=== PATIENT | male | born 1980 | race Caucasian/White ===

== ENCOUNTER → 2017-07-22 | Outpatient (CLI) | payer BC ==
[~2017-07-22] MED LIST: ACE500 PO; ACET-2043 PO; ADV100/50 INH; ADV250/50 INH; ALB17R INH; ALBU8.5H12 IH; AMO500 PO; ATEN-1 PO; AZIT500T47 PO; BACDS PO; BUPR300T55 PO; CYCL10TA29 PO; DEXM5TAB3 PO; DIA5 PO; DIAZ-308 PO; DUONEB INH; ESZO1TAB16 PO; EYEDROP; FLU20 PO; FLUO40CA76 PO; HYDR-2952 PO; HYDR-4308 PO; HYDR473S4 PO; LANS15CA54 PO; LOM PO; LOR5 PO; LOR5/325 PO; LORA10CA3 PO; MES400 PO; METHY10 GT; MON10 PO; MUPI22OI28 TP; OMEP40CA45 PO; ONDA4TAB9 PO; ONDA8TAB98 PO; OXYC-869 PO; PAN20 PO; PAN40 PO; PANT40TA65 PO; PER PO; PIRO-1 PO; PRE10 PO; PRE20 PO; PREOD OS; PRO25 PO; PROM-110 PO; SUCR1TAB85 PO; TRA50 PO; TRAV2.5D4 OD; VENL150C61 PO
--- NOTE | 2017-07-22 09:27 | RADIOLOGY IMAGING REPORT ---
FACILITY: [facility] - [place] PATIENT NAME: Nolan Walton : 1980 MR: [id number] V: [id number] EXAM DATE: ORDERING PHYSICIAN: PATTI VAUGHN TECHNOLOGIST: Location: [facility] - [place] Patient: Nolan Walton : 1980 Visit/Account:[id number] Date of Sevice: 07/22/2017 Abdominal ultrasound Indication: Abdominal pain Comparison: CT 03/25/2016 Findings: Liver is normal in size and contour but diffusely heterogeneous in echotexture and measures 16.7 cm i n length. There is normal hepatopedal portal venous flow. The spleen is normal in size, contour, and echotexture and measures 11.0 cm in length. Gallbladder is surgically absent. Common duct measures 4.1 mm in maximum diameter with no evidence of shadowing stone. The head and proximal body of the pancreas is unremarkable. The distal body and tail is obscured by o verlying bowel gas. Abdominal aorta and IVC are patent and unremarkable. The bilateral kidneys are normal in size, contour, and echotexture with the right kidney measuring 1 1.0 cm and the left kidney measuring 12.1 cm. IMPRESSION: 1. Heterogeneous appearing liver with mild hepatic steatosis, otherwise abdominal ultrasound is unrem arkable. Report Dictated By: Justice Shankar at 07/22/2017 9:20 AM Report E-Signed By: Justice Shankar at 07/22/2017 9:23 AM WSN:[id number]
== END ==
LOC: US 00:52
PROVIDERS: ATTEND Nurse Practitioner Family
DX: K76.0 Fatty (change of) liver, not elsewhere classified (principal)
CPT/HCPCS: 76700

== ENCOUNTER 2018-05-19 10:19 | Emergency (ER) | payer BC ==
[~2018-05-19 10:19] MED LIST changes: -HYDR-4308 PO; +HYDR-654 PO
[2018-05-19] MEDS ORDERED: NS(*) 0.9% 1000 ML BAG 1,000 ML IV ONE (10:30)
[2018-05-19] MEDS ORDERED: METO50TA19 PO (10:30)
[2018-05-19] MEDS ORDERED: ONDANSETRON 4 MG/2 ML VIAL IVP ONE (10:30)
[2018-05-19] MEDS ORDERED: fentaNYL CITR 100 MCG/2 ML AMP IVP ONE (10:30)
--- NOTE | 2018-05-19 10:34 | ER Report ---
History and Physical Time Seen By MD: 10:31 HPI/ROS CHIEF COMPLAINT: Abdominal pain HISTORY OF PRESENT ILLNESS: 38-year-old male significant past medical history of multiple conditions including's psychiatric disorders hypertension said his gal lbladder removed she's had his appendix removed comes in with 2 days of persistent vomiting and diarrhea subjective fever and chills abdominal pain primarily epigastric but all over his belly diffuse unable to tolerate by mouth in any way nursing history of small bowel obstruction as per date patient denies chest pain patient denies additional complaints at this time pain is persistent constant sharp and stabbing with episodes of dull and aching primarily upper epigastric area but also localized in the lower regions as well REVIEW OF SYSTEMS: Respiratory: No cough, no dyspnea. Cardiovascular: No chest pain, no palpitations. Gastrointestinal: Vomiting diarrhea abdominal pain Musculoskeletal: No back pain. Remainder of the 14 system rev: Yes Allergies: Coded Allergies: adhesive (Verified Adverse Reaction, Intermediate, ITCHING, 05/19/18) Uncoded Allergies: HAYFEVER (Allergy, Mild, SINUS PROBLEMS, 08/27/11) Home Meds Active Scripts Pantoprazole Sodium (PANTOPRAZOLE SODIUM) 40 Mg Tablet.dr, 40 MG PO QDAY, #30 TAB.SR Prov:ANGI SOUZA NP 06/22/15 Ondansetron 4 Mg Odt (ONDANSETRON 4 MG ODT) 4 Mg Tab.rapdis, 4 MG PO Q6H, #10 TAB One tablet every 6 hours as needed for nausea and vomiting. Prov:ANGI SOUZA NP 06/22/15 Reported Medications Metoprolol Succinate (METOPROLOL SUCCINATE) 50 Mg Tab.er.24h, 1 TAB PO QDAY, TAB 05/19/18 Venlafaxine Hcl (EFFEXOR XR) 150 Mg Cap.er.24h, 150 MG PO QDAY 03/25/16 Albuterol Sulfate (Albuterol Sulfate Hfa) 8.5 Gm Hfa.aer.ad, 8.5 GM IH Q4H PRN, 0 Refills 02/16/11 Fluoxetine Hcl (Prozac) 40 Mg Capsule, 40 MG PO QDAY, #20 0 Refills 02/16/11 Discontinued Reported Medications Atenolol (ATENOLOL) 50 Mg Tablet, 20 MG PO QDAY, TAB 03/25/16 Cyclobenzaprine Hcl (CYCLOBENZAPRINE HCL) 10 Mg Tablet, 10 MG PO TID PRN for tension pena and back problems, #9 TAB 06/22/15 Acetaminophen (ACETAMINOPHEN) 500 Mg Tablet, 500 MG PO Q4-6H PRN for PAIN, TAB 01/20/14 Loratadine (CLARITIN) 10 Mg Capsule, 10 MG PO, CAPSULE 01/20/14 Travoprost (Travatan 0.004% Eye Drop) 2.5 Ml Drops, 2.5 ML OD DAILY, 0 Refills 02/16/11 Discontinued Scripts Ondansetron (ONDANSETRON ODT) 8 Mg Tab.rapdis, 8 MG PO Q4-6H, #10 Prov:KIRILL CHANEY DO 03/25/16 Oxycodone Hcl/Acetaminophen (PERCOCET 7.5-325 MG TABLET) 1 Each Tablet, 1 EACH PO Q4-6H, #14 Prov:KIRILL CHANEY DO 03/25/16 Oxycodone/Acetaminophen (OXYCODONE/ACETAMINOPHEN 5MG/325 MG) 5 Mg/325 Mg Tab, 1- 2 TAB PO Q6H, #20 TAB Prov:ANGI SOUZA YARD PIPE GRADER 06/22/15 Reviewed Nurses Notes: Yes Old Medical Records Reviewed: Yes Hx Smoking: No Smoking Status: Never Smoker Hx Substance Use Disorder: No Hx Alcohol Use: No Constitutional Vital Sign - Last 24 Hours 05/19/18 05/19/18 10:25 10:51 Temp 97.4 Pulse 100 Resp 20 B/P (MAP) 150/78 Pulse Ox 93 O2 Delivery Room Air O2 Flow Rate 2.0 Physical Exam General Appearance: The patient is alert, has no immediate need for airway protection and no current signs of toxicity. Appears uncomfortable Eyes: Pupils equal and round no injection. Respiratory: Chest is non tender, lungs are clear to auscultation. Cardiac: regular rate and rhythm [ ] Gastrointestinal: Abdomen tenderness to even light palpation no rebound mild guarding no peritoneal signs noted primarily epigastrium summa no lower abdominal periumbilical region normal bowel sounds otherwise unremarkable Musculoskeletal: Neck: Neck is supple and non tender. Extremities have full range of motion and are non tender. Skin: No rashes or lesions. [ ] DIFFERENTIAL DIAGNOSIS: After history and physical exam differential diagnosis was considered for small bowel obstruction perforation pancreatitis esophagitis Medical Decision Making Data Points Result Diagram: 05/19/18 1039 05/19/18 1039 Laboratory Hematology Test 05/19/18 10:24 05/19/18 10:39 Urine Color Yellow Urine Clarity Clear Urine pH 5.0 pH (4.8-9.5) Urine Specific [place] 1.020 Urine Protein Negative mg/dL (NEGATIVE) Urine Glucose (UA) Negative mg/dL (NEGATIVE) Urine Ketones Negative mg/dL (NEGATIVE) Urine Blood Negative (NEGATIVE) Urine Nitrite Negative (NEGATIVE) Urine Bilirubin Negative (NEGATIVE) Urine Urobilinogen Negative mg/dL (0.2-1.9) Urine Leukocyte Esterase Negative (NEGATIVE) Urine RBC None /HPF (0-2/HPF) Urine WBC 1 /HPF (0-5/HPF) Urine Squamous Epithelial Cells None /LPF (</=FEW) Urine Bacteria Negative /HPF (NONE-FEW) Urine Hyaline Casts Few /LPF (NONE-FEW) Urine Mucus Few /HPF (NONE-FEW) Red Blood Count 5.96 M/uL (4.00-5.60) Mean Corpuscular Volume 86.6 fL (80.0-96.0) Mean Corpuscular Hemoglobin 29.0 pg (26.0-33.0) Mean Corpuscular Hemoglobin Concent 33.5 g/dL (32.0-36.0) Red Cell Distribution Width 13.7 % (11.5-14.5) Mean Platelet Volume 8.5 fL (7.2-11.1) Neutrophils (%) (Auto) 69.8 % (39.4-72.5) Lymphocytes (%) (Auto) 22.2 % (17.6-49.6) Monocytes (%) (Auto) 6.1 % (4.1-12.4) Eosinophils (%) (Auto) 1.6 % (0.4-6.7) Basophils (%) (Auto) 0.3 % (0.3-1.4) Nucleated RBC Relative Count (auto) 0.1 /100WBC Neutrophils # (Auto) 7.8 K/uL (2.0-7.4) Lymphocytes # (Auto) 2.5 K/uL (1.3-3.6) Monocytes # (Auto) 0.7 K/uL (0.3-1.0) Eosinophils # (Auto) 0.2 K/uL (0.0-0.5) Basophils # (Auto) 0.0 K/uL (0.0-0.1) Nucleated RBC Absolute Count (auto) 0.01 K/uL Prothrombin Time 13.6 seconds (12.0-14.4) Prothromb Time International Ratio 1.04 Activated Partial Thromboplast Time 30 seconds (23-35) Sodium Level 141 mmol/L (137-145) Potassium Level 4.4 mmol/L (3.5-5.0) Chloride Level 105 mmol/L (98-107) Carbon Dioxide Level 23 mmol/L (22-30) Blood Urea Nitrogen 12 mg/dl (9-21) Creatinine 1.10 mg/dl (0.66-1.25) Glomerular Filtration Rate Calc > 60.0 Random Glucose 108 mg/dl (75-110) Calcium Level 9.0 mg/dl (8.4-10.2) Total Bilirubin 2.3 mg/dl (0.2-1.3) Aspartate Amino Transf (AST/SGOT) 66 U/L (0-35) Alanine Aminotransferase (ALT/SGPT) 115 U/L (0-56) Alkaline Phosphatase 111 U/L (0-126) Total Protein 8.2 g/dl (6.3-8.2) Albumin 4.7 g/dl (3.5-5.0) Lipase 244 U/L (23-300) Serum Alcohol < 10 mg/dl Chemistry Test 05/19/18 10:24 05/19/18 10:39 Urine Color Yellow Urine Clarity Clear Urine pH 5.0 pH (4.8-9.5) Urine Specific [place] 1.020 Urine Protein Negative mg/dL (NEGATIVE) Urine Glucose (UA) Negative mg/dL (NEGATIVE) Urine Ketones Negative mg/dL (NEGATIVE) Urine Blood Negative (NEGATIVE) Urine Nitrite Negative (NEGATIVE) Urine Bilirubin Negative (NEGATIVE) Urine Urobilinogen Negative mg/dL (0.2-1.9) Urine Leukocyte Esterase Negative (NEGATIVE) Urine RBC None /HPF (0-2/HPF) Urine WBC 1 /HPF (0-5/HPF) Urine Squamous Epithelial Cells None /LPF (</=FEW) Urine Bacteria Negative /HPF (NONE-FEW) Urine Hyaline Casts Few /LPF (NONE-FEW) Urine Mucus Few /HPF (NONE-FEW) White Blood Count 11.2 k/uL (4.5-11.0) Red Blood Count 5.96 M/uL (4.00-5.60) Hemoglobin 17.3 g/dL (14.0-18.0) Hematocrit 51.6 % (42.0-52.0) Mean Corpuscular Volume 86.6 fL (80.0-96.0) Mean Corpuscular Hemoglobin 29.0 pg (26.0-33.0) Mean Corpuscular Hemoglobin Concent 33.5 g/dL (32.0-36.0) Red Cell Distribution Width 13.7 % (11.5-14.5) Platelet Count 295 K/uL (150-450) Mean Platelet Volume 8.5 fL (7.2-11.1) Neutrophils (%) (Auto) 69.8 % (39.4-72.5) Lymphocytes (%) (Auto) 22.2 % (17.6-49.6) Monocytes (%) (Auto) 6.1 % (4.1-12.4) Eosinophils (%) (Auto) 1.6 % (0.4-6.7) Basophils (%) (Auto) 0.3 % (0.3-1.4) Nucleated RBC Relative Count (auto) 0.1 /100WBC Neutrophils # (Auto) 7.8 K/uL (2.0-7.4) Lymphocytes # (Auto) 2.5 K/uL (1.3-3.6) Monocytes # (Auto) 0.7 K/uL (0.3-1.0) Eosinophils # (Auto) 0.2 K/uL (0.0-0.5) Basophils # (Auto) 0.0 K/uL (0.0-0.1) Nucleated RBC Absolute Count (auto) 0.01 K/uL Prothrombin Time 13.6 seconds (12.0-14.4) Prothromb Time International Ratio 1.04 Activated Partial Thromboplast Time 30 seconds (23-35) Glomerular Filtration Rate Calc > 60.0 Calcium Level 9.0 mg/dl (8.4-10.2) Total Bilirubin 2.3 mg/dl (0.2-1.3) Aspartate Amino Transf (AST/SGOT) 66 U/L (0-35) Alanine Aminotransferase (ALT/SGPT) 115 U/L (0-56) Alkaline Phosphatase 111 U/L (0-126) Total Protein 8.2 g/dl (6.3-8.2) Albumin 4.7 g/dl (3.5-5.0) Lipase 244 U/L (23-300) Serum Alcohol < 10 mg/dl Coagulation Test 05/19/18 10:39 Prothrombin Time 13.6 seconds Prothromb Time International Ratio 1.04 Activated Partial Thromboplast Time 30 seconds Toxicology Test 05/19/18 10:39 Serum Alcohol < 10 mg/dl Urinalysis Test 05/19/18 10:24 Urine Color Yellow Urine Clarity Clear Urine pH 5.0 pH (4.8-9.5) Urine Specific [place] 1.020 Urine Protein Negative mg/dL (NEGATIVE) Urine Glucose (UA) Negative mg/dL (NEGATIVE) Urine Ketones Negative mg/dL (NEGATIVE) Urine Blood Negative (NEGATIVE) Urine Nitrite Negative (NEGATIVE) Urine Bilirubin Negative (NEGATIVE) Urine Urobilinogen Negative mg/dL (0.2-1.9) Urine Leukocyte Esterase Negative (NEGATIVE) Urine RBC None /HPF (0-2/HPF) Urine WBC 1 /HPF (0-5/HPF) Urine Squamous Epithelial Cells None /LPF (</=FEW) Urine Bacteria Negative /HPF (NONE-FEW) Urine Hyaline Casts Few /LPF (NONE-FEW) Urine Mucus Few /HPF (NONE-FEW) ED Course/Re-evaluation ED Course 38-year-old male history of Q [place] comes in with persistent vomiting and diarrhea CT scan show nothing acute slight bump in his LFTs and bilirubin bedside consult by general surgery after scan comfortable discharging home with some antibiotics patient Fluid resuscitation while he was here most high probability of this being a viral etiology Decision to Disposition Date: May 19, 2018 Decision to Disposition Time: 12:33 Depart Departure Latest Vital Signs Vital Signs Date Time Temp Pulse Resp B/P (MAP) Pulse Ox O2 Delivery O2 Flow Rate FiO2 05/19/18 10:51 2.0 05/19/18 10:25 97.4 100 20 150/78 93 Room Air Impression: Primary Impression: Viral gastroenteritis Condition: Improved Disposition: HOME OR SELF-CARE Referrals: MEGAN HOWELL (PCP) JOSE ERICKSON 5 Days New Scripts Promethazine Hcl (PROMETHAZINE HCL) 25 Mg Tablet 25 MG PO Q8H for 7 Days, #14 TAB Prov: CELESTINO CARDENAS MD 05/19/18 Patient Instructions: Gastroenteritis (DC) CELESTINO CARDENAS MD May 19, 2018 10:34
[2018-05-19 10:52] LABS: PLATELET COUNT, AUTOMATED 295 K/uL (150-450)
[2018-05-19 10:58] LABS: INR 1.04
[2018-05-19] MEDS ORDERED: IOPAMIDOL 76% 100 ML INFUS BTL 100 ML ONE (10:58)
--- NOTE | 2018-05-19 11:26 | RADIOLOGY IMAGING REPORT ---
FACILITY: [facility] - [place] PATIENT NAME: Nolan Walton : 1980 MR: [id number] V: [id number] EXAM DATE: ORDERING PHYSICIAN: CELESTINO CARDENAS TECHNOLOGIST: [place] [facility] [place] : 1980 Visit/Account:[id number] Date of Sevice: 05/19/2018 Exam type: CHEST PA LAT History: Nausea vomiting diarrhea and asthma Comparison: June 23, 2015. Findings: Is a small amount linear scarring in the lung bases similar to the prior study.. There is no evidenc e of acute appearing infiltrates, pleural effusions, pneumothorax or pneumomediastinum. Incidentally noted is an accessory azygous lobe. The cardiac silhouette is normal in size. Visualized bones are unremarkable for age IMPRESSION: 1. There is linear scarring in the lung bases that appears some are to the prior study although no e vidence of acute pulmonary consolidation Report Dictated By: Lori Rashid MD at 05/19/2018 11:19 AM Report E-Signed By: Lori Rashid MD at 05/19/2018 11:21 AM WSN:[email or web address]
[2018-05-19 12:00] VITALS: BP 104/68
--- NOTE | 2018-05-19 12:04 | RADIOLOGY IMAGING REPORT ---
FACILITY: [facility] - [place] PATIENT NAME: oNlan Walton : 1980 MR: [id number] V: [id number] EXAM DATE: ORDERING PHYSICIAN: CELESTINO CARDENAS TECHNOLOGIST: Location: [facility] Patient: Nolan Walton : 1980 Visit/Account:[id number] Date of Sevice: 05/19/2018 CT ABDOMEN PELVIS W/ CON HISTORY: Abdominal pain. Constipation and vomiting. TECHNIQUE: CT abdomen and pelvis with intravenous contrast. One of the following dose optimization techniques was utilized in the performance of this exam: Autom ated exposure control; adjustment of the mA and/or kV according to the patient's size; or use of an i terative reconstruction technique. Specific details can be referenced in the facility's radiology C T exam operational policy. CONTRAST: 75 mL Isovue-370. COMPARISON: March 25, 2016. FINDINGS: Visualized lung bases: Negative. Hepatobiliary: Suggestion of hepatic steatosis. Gallbladder surgically absent. Otherwise negative. Spleen: Negative. Adrenals: Negative. Pancreas: Negative. Kidneys/: Negative. No urolithiasis or hydronephrosis. GI: Incidental note of a small duodenal diverticulum. Otherwise negative. Appendix is not identified and may be absent. No wall thickening. No significant stool burden. No evidence for bowel obstructio n. Vessels/spaces/nodes: Negative. Bones/soft tissues: Negative. IMPRESSION: 1. No acute findings. 2. Incidental/chronic findings, as above. Report Dictated By: Josue Michael MD at 05/19/2018 11:57 AM Report E-Signed By: Joseu Michael MD at 05/19/2018 12:00 PM WSN:[id number]
[2018-05-19] MEDS ORDERED: PROM-110 PO (12:35)
--- NOTE | 2018-05-19 13:48 | General Surgery Consultation ---
History of Present Illness Reason for Consult abd pain, elevated lfts Chief Complaint abd pain, vomiting, diarrhea History of Present Illness 38 yo m with upper abd pain, vomiting and diarrhea for about 24 hrs. no blood in stool. no sick contacts. recently had the flu. h/o gilberts. h/o lap aditi, appendectomy. egd and colonoscopy 3 yrs ago were normal. c/o reflux. takes protonix daily. has hiatal hernia. no fever. History Home Meds Active Scripts Promethazine Hcl (PROMETHAZINE HCL) 25 Mg Tablet, 25 MG PO Q8H for 7 Days, #14 TAB Prov:CELESTINO CARDENAS MD 05/19/18 Pantoprazole Sodium (PANTOPRAZOLE SODIUM) 40 Mg Tablet.dr, 40 MG PO QDAY, #30 TAB.SR Prov:ANGI SOUZA NP 06/22/15 Ondansetron 4 Mg Odt (ONDANSETRON 4 MG ODT) 4 Mg Tab.rapdis, 4 MG PO Q6H, #10 TAB One tablet every 6 hours as needed for nausea and vomiting. Prov:ANGI SOUZA NP 06/22/15 Reported Medications Metoprolol Succinate (METOPROLOL SUCCINATE) 50 Mg Tab.er.24h, 1 TAB PO QDAY, TAB 05/19/18 Venlafaxine Hcl (EFFEXOR XR) 150 Mg Cap.er.24h, 150 MG PO QDAY 03/25/16 Albuterol Sulfate (Albuterol Sulfate Hfa) 8.5 Gm Hfa.aer.ad, 8.5 GM IH Q4H PRN, 0 Refills 02/16/11 Fluoxetine Hcl (Prozac) 40 Mg Capsule, 40 MG PO QDAY, #20 0 Refills 02/16/11 Discontinued Reported Medications Atenolol (ATENOLOL) 50 Mg Tablet, 20 MG PO QDAY, TAB 03/25/16 Cyclobenzaprine Hcl (CYCLOBENZAPRINE HCL) 10 Mg Tablet, 10 MG PO TID PRN for tension pena and back problems, #9 TAB 06/22/15 Acetaminophen (ACETAMINOPHEN) 500 Mg Tablet, 500 MG PO Q4-6H PRN for PAIN, TAB 01/20/14 Loratadine (CLARITIN) 10 Mg Capsule, 10 MG PO, CAPSULE 01/20/14 Travoprost (Travatan 0.004% Eye Drop) 2.5 Ml Drops, 2.5 ML OD DAILY, 0 Refills 02/16/11 Discontinued Scripts Ondansetron (ONDANSETRON ODT) 8 Mg Tab.rapdis, 8 MG PO Q4-6H, #10 Prov:KIRILL CHANEY DO 03/25/16 Oxycodone Hcl/Acetaminophen (PERCOCET 7.5-325 MG TABLET) 1 Each Tablet, 1 EACH PO Q4-6H, #14 Prov:KIRILL CHANEY DO 03/25/16 Oxycodone/Acetaminophen (OXYCODONE/ACETAMINOPHEN 5MG/325 MG) 5 Mg/325 Mg Tab, 1- 2 TAB PO Q6H, #20 TAB Prov:ANGI SOUZA FERRIS WHEEL OPERATOR 06/22/15 Allergies: Coded Allergies: adhesive (Verified Adverse Reaction, Intermediate, ITCHING, 05/19/18) Uncoded Allergies: HAYFEVER (Allergy, Mild, SINUS PROBLEMS, 08/27/11) Family History: FH: asthma siblings x3 FH: sleep apnea siblings x3 GERD FATHER Gallbladder disease FATHER siblings x3 Review of Systems Constitutional: Other (per hpi) Exam Vital Signs Vital Signs Date Time Temp Pulse Resp B/P (MAP) Pulse Ox O2 Delivery O2 Flow Rate FiO2 05/19/18 12:00 76 104/68 (80) 93 05/19/18 10:51 2.0 05/19/18 10:25 97.4 20 Room Air General Appearance: Alert, Awake, No Acute Distress Neuro: No Gross deficits Eyes: Other (per, eomi) ENT: Moist Mucous Membranes Cardiovascular: Other (reg rate) Respiratory: No Respiratory Distress GI: Other (abd soft, upper abd ttp) Integumentary: Skin Intact without Lesion / Mass Psych: Alert & Oriented X3, Appropriate Mood & Affect Medical Decision Making Data Points Result Diagram: 05/19/18 1039 05/19/18 1039 Assessment and Plan Problems: (1) Nausea and vomiting in adult Status: Acute Assessment & Plan: upper abd pain, n/v, diarrhea. ct unremarkable. elevated lfts likely from gilberts. pt states he feels comfortable going home. i advised him to call or go to er for increased pain, decreased uop, or inability to brenda po. plan: d/c home, antinausea meds, f/u me next week and prn. Venous Thromboembolism Antithrombotics Is Pt On Any Antithrombotics?: No JOSE ERICKSON May 19, 2018 13:48
== END 2018-05-19 12:47 | disposition home or self-care (01) ==
LOC: ER 10:36
DX: A08.4 Viral intestinal infection, unspecified (principal); R10.13 Epigastric pain
CPT/HCPCS: 71046; 74177; 80320; 81001; 83690; 85025; 85610; 85730; 96361; 96374; 96375; 99284; J2405; J3010; J7030; Q9967; 82040; 82247; 82310; 82374; 82435; 82565; 82947; 84075; 84132; 84155; 84295; 84450; 84460; 84520

== ENCOUNTER 2018-07-08 09:15 | Emergency (ER) | payer BC ==
[~2018-07-08 09:15] MED LIST changes: +METO50TA19 PO
--- NOTE | 2018-07-08 09:19 | ER Report ---
History and Physical Time Seen By MD: 09:19 HPI/ROS CHIEF COMPLAINT: Nausea vomiting abdominal pain diarrhea HISTORY OF PRESENT ILLNESS: Patient is a 38-year-old male who reports that he's been having recurring abdominal pain ever since having his gallbladder removed approximately 4 years ago. Last visit was in April of this year. Patient states that he usually develops pain that lasts for about 3-4 days and then resolves on its own. He is had multiple workups which have not found a cause of his abdominal pain. Pain started yesterday and became more severe. His last meal was last evening which was spaghetti along with and some crackers. Patient states he has no fevers. The pain is diffuse and across the abdomen and states that it goes from the rib cage down to the pelvic area. He also reports watery diarrhea and intractable vomiting. Denies any chest pain or shortness of breath. There is no recent antibiotic use. No recent travel history. REVIEW OF SYSTEMS: Constitutional: No fever, no chills. Eyes: No discharge. ENT: No sore throat. Cardiovascular: No chest pain, no palpitations. Respiratory: No cough, no shortness of breath. Gastrointestinal: Abdominal pain, nausea vomiting and diarrhea. Genitourinary: No hematuria. Musculoskeletal: No back pain. Skin: No rashes. Neurological: No headache. Allergies: Coded Allergies: adhesive (Verified Adverse Reaction, Intermediate, ITCHING, 07/08/18) Uncoded Allergies: HAYFEVER (Allergy, Mild, SINUS PROBLEMS, 08/27/11) Home Meds Active Scripts Promethazine Hcl (PROMETHAZINE HCL) 25 Mg Tablet, 25 MG PO Q8H for 7 Days, #14 TAB Prov:CELESTINO CARDENAS MD 05/19/18 Pantoprazole Sodium (PANTOPRAZOLE SODIUM) 40 Mg Tablet.dr, 40 MG PO QDAY, #30 TAB.SR Prov:ANGI SOUZA NP 06/22/15 Ondansetron 4 Mg Odt (ONDANSETRON 4 MG ODT) 4 Mg Tab.rapdis, 4 MG PO Q6H, #10 TAB One tablet every 6 hours as needed for nausea and vomiting. Prov:ANGI SOUZA NP 06/22/15 Reported Medications Atorvastatin Calcium (LIPITOR) 40 Mg Tablet, 1 TAB PO QDAY, TAB 07/08/18 Latanoprost (TRAVATAN Z) 2.5 Ml Soln, 2.5 ML OD 07/08/18 Metoprolol Succinate (METOPROLOL SUCCINATE) 50 Mg Tab.er.24h, 1 TAB PO QDAY, TAB 05/19/18 Venlafaxine Hcl (EFFEXOR XR) 150 Mg Cap.er.24h, 175 MG PO QDAY 03/25/16 Albuterol Sulfate (Albuterol Sulfate Hfa) 8.5 Gm Hfa.aer.ad, 8.5 GM IH Q4H PRN, 0 Refills 02/16/11 Fluoxetine Hcl (Prozac) 40 Mg Capsule, 40 MG PO QDAY, #20 0 Refills 02/16/11 Past Medical/Surgical History Past medical history for laparoscopic cholecystectomy, appendectomy, history of the shoulders syndrome, history of gastroesophageal reflux and hiatal hernia. Hx Smoking: No Smoking Status: Never Smoker Hx Substance Use Disorder: No Hx Alcohol Use: No Constitutional Vital Sign - Last 24 Hours 07/08/18 07/08/18 09:18 09:48 Temp 98.4 Pulse 110 Resp 14 B/P (MAP) 122/88 Pulse Ox 95 O2 Delivery Room Air O2 Flow Rate 1.0 Physical Exam General Appearance: The patient is alert, has no immediate need for airway protection and no signs of toxicity. Eyes: Pupils equal and round no pallor or injection. ENT, Mouth: Mucous membranes are moist. Respiratory: There are no retractions, lungs are clear to auscultation. Cardiovascular: Regular rate and rhythm. Gastrointestinal: Somewhat protuberant abdomen diffusely tender without peritoneal signs. Decreased bowel sounds. Neurological: Awake alert Skin: Warm and dry, no rashes. Musculoskeletal: Neck is supple non tender. Extremities are nontender, nonswollen and have full range of motion. Medical Decision Making Data Points Result Diagram: 07/08/1837 07/08/18 0937 Laboratory Hematology Test 07/08/18 09:18 07/08/18 09:37 Urine Color Yellow Urine Clarity Clear Urine pH 5.0 pH (4.8-9.5) Urine Specific Magnet 1.018 Urine Protein Negative mg/dL (NEGATIVE) Urine Glucose (UA) Negative mg/dL (NEGATIVE) Urine Ketones Negative mg/dL (NEGATIVE) Urine Blood Negative (NEGATIVE) Urine Nitrite Negative (NEGATIVE) Urine Bilirubin Negative (NEGATIVE) Urine Urobilinogen Negative mg/dL (0.2-1.9) Urine Leukocyte Esterase Negative (NEGATIVE) Urine RBC <1 /HPF (0-2/HPF) Urine WBC 1 /HPF (0-5/HPF) Urine Squamous Epithelial Cells None /LPF (</=FEW) Urine Bacteria Negative /HPF (NONE-FEW) Urine Mucus Few /HPF (NONE-FEW) Red Blood Count 6.20 M/uL (4.00-5.60) Mean Corpuscular Volume 87.4 fL (80.0-96.0) Mean Corpuscular Hemoglobin 29.7 pg (26.0-33.0) Mean Corpuscular Hemoglobin Concent 34.0 g/dL (32.0-36.0) Red Cell Distribution Width 14.2 % (11.5-14.5) Mean Platelet Volume 8.8 fL (7.2-11.1) Neutrophils (%) (Auto) 71.9 % (39.4-72.5) Lymphocytes (%) (Auto) 19.0 % (17.6-49.6) Monocytes (%) (Auto) 5.3 % (4.1-12.4) Eosinophils (%) (Auto) 3.4 % (0.4-6.7) Basophils (%) (Auto) 0.4 % (0.3-1.4) Nucleated RBC Relative Count (auto) 0.0 /100WBC Neutrophils # (Auto) 8.4 K/uL (2.0-7.4) Lymphocytes # (Auto) 2.2 K/uL (1.3-3.6) Monocytes # (Auto) 0.6 K/uL (0.3-1.0) Eosinophils # (Auto) 0.4 K/uL (0.0-0.5) Basophils # (Auto) 0.0 K/uL (0.0-0.1) Nucleated RBC Absolute Count (auto) 0.00 K/uL Peripheral Blood Smear No Y/N Sodium Level 141 mmol/L (137-145) Potassium Level 4.0 mmol/L (3.5-5.0) Chloride Level 105 mmol/L (98-107) Carbon Dioxide Level 24 mmol/L (22-30) Blood Urea Nitrogen 10 mg/dl (9-21) Creatinine 1.10 mg/dl (0.66-1.25) Glomerular Filtration Rate Calc > 60.0 Random Glucose 118 mg/dl (75-110) Calcium Level 9.4 mg/dl (8.4-10.2) Total Bilirubin 1.5 mg/dl (0.2-1.3) Aspartate Amino Transf (AST/SGOT) 29 U/L (0-35) Alanine Aminotransferase (ALT/SGPT) 47 U/L (0-56) Alkaline Phosphatase < 20 U/L (0-126) Total Protein 8.4 g/dl (6.3-8.2) Albumin 4.7 g/dl (3.5-5.0) Lipase 185 U/L (23-300) Helicobacter pylori IgG Antibody Negative (NEGATIVE) Chemistry Test 07/08/18 09:18 07/08/18 09:37 Urine Color Yellow Urine Clarity Clear Urine pH 5.0 pH (4.8-9.5) Urine Specific Magnet 1.018 Urine Protein Negative mg/dL (NEGATIVE) Urine Glucose (UA) Negative mg/dL (NEGATIVE) Urine Ketones Negative mg/dL (NEGATIVE) Urine Blood Negative (NEGATIVE) Urine Nitrite Negative (NEGATIVE) Urine Bilirubin Negative (NEGATIVE) Urine Urobilinogen Negative mg/dL (0.2-1.9) Urine Leukocyte Esterase Negative (NEGATIVE) Urine RBC <1 /HPF (0-2/HPF) Urine WBC 1 /HPF (0-5/HPF) Urine Squamous Epithelial Cells None /LPF (</=FEW) Urine Bacteria Negative /HPF (NONE-FEW) Urine Mucus Few /HPF (NONE-FEW) White Blood Count 11.6 k/uL (4.5-11.0) Red Blood Count 6.20 M/uL (4.00-5.60) Hemoglobin 18.4 g/dL (14.0-18.0) Hematocrit 54.2 % (42.0-52.0) Mean Corpuscular Volume 87.4 fL (80.0-96.0) Mean Corpuscular Hemoglobin 29.7 pg (26.0-33.0) Mean Corpuscular Hemoglobin Concent 34.0 g/dL (32.0-36.0) Red Cell Distribution Width 14.2 % (11.5-14.5) Platelet Count 305 K/uL (150-450) Mean Platelet Volume 8.8 fL (7.2-11.1) Neutrophils (%) (Auto) 71.9 % (39.4-72.5) Lymphocytes (%) (Auto) 19.0 % (17.6-49.6) Monocytes (%) (Auto) 5.3 % (4.1-12.4) Eosinophils (%) (Auto) 3.4 % (0.4-6.7) Basophils (%) (Auto) 0.4 % (0.3-1.4) Nucleated RBC Relative Count (auto) 0.0 /100WBC Neutrophils # (Auto) 8.4 K/uL (2.0-7.4) Lymphocytes # (Auto) 2.2 K/uL (1.3-3.6) Monocytes # (Auto) 0.6 K/uL (0.3-1.0) Eosinophils # (Auto) 0.4 K/uL (0.0-0.5) Basophils # (Auto) 0.0 K/uL (0.0-0.1) Nucleated RBC Absolute Count (auto) 0.00 K/uL Peripheral Blood Smear No Y/N Glomerular Filtration Rate Calc > 60.0 Calcium Level 9.4 mg/dl (8.4-10.2) Total Bilirubin 1.5 mg/dl (0.2-1.3) Aspartate Amino Transf (AST/SGOT) 29 U/L (0-35) Alanine Aminotransferase (ALT/SGPT) 47 U/L (0-56) Alkaline Phosphatase < 20 U/L (0-126) Total Protein 8.4 g/dl (6.3-8.2) Albumin 4.7 g/dl (3.5-5.0) Lipase 185 U/L (23-300) Helicobacter pylori IgG Antibody Negative (NEGATIVE) Urinalysis Test 07/08/18 09:18 Urine Color Yellow Urine Clarity Clear Urine pH 5.0 pH (4.8-9.5) Urine Specific Magnet 1.018 Urine Protein Negative mg/dL (NEGATIVE) Urine Glucose (UA) Negative mg/dL (NEGATIVE) Urine Ketones Negative mg/dL (NEGATIVE) Urine Blood Negative (NEGATIVE) Urine Nitrite Negative (NEGATIVE) Urine Bilirubin Negative (NEGATIVE) Urine Urobilinogen Negative mg/dL (0.2-1.9) Urine Leukocyte Esterase Negative (NEGATIVE) Urine RBC <1 /HPF (0-2/HPF) Urine WBC 1 /HPF (0-5/HPF) Urine Squamous Epithelial Cells None /LPF (</=FEW) Urine Bacteria Negative /HPF (NONE-FEW) Urine Mucus Few /HPF (NONE-FEW) ED Course/Re-evaluation Clinical Indication for ER IV: Hydration, IV Access ED Course 07/08/2018 9:40:14 am patient with recurring abdominal pain since he's had his gallbladder removed approximately 4 years ago. He has had multiple workups inclu ding imaging such as CT scan with and without IV contrast without etiology being elucidated. Plan will be IV pain medicine patient will be nothing by mouth we will perform CT scanning with IV contrast to check blood work. Consider discussing the case with general surgery is no obvious cause is found. 07/08/2018 11:11:32 am I spoke with Dr. Phan who was the initial operating surgeon for this patient's gallbladder 2014. Patient has had similar presentations to the ER with severe abdominal pain. Dr. Phan feels that this might represent sphincter spasm. He recommends that we start Colace tyramine twice per day and that he'll follow-up with Dr. Phan as an outpatient. This was explained to the patient he had no questions or concerns at time of disposition. Decision to Disposition Date: Jul 08, 2018 Decision to Disposition Time: 11:12 Depart Departure Latest Vital Signs Vital Signs Date Time Temp Pulse Resp B/P (MAP) Pulse Ox O2 Delivery O2 Flow Rate FiO2 07/08/18 09:48 1.0 07/08/18 09:18 98.4 110 14 122/88 95 Room Air Impression: Primary Impression: Biliary colic Condition: Improved Disposition: HOME OR SELF-CARE Referrals: MEGAN HOWELL (PCP) COLLIN GARY MD call to schedule follow up appointment New Scripts Ondansetron Hcl (ZOFRAN) 4 Mg Tablet 4 MG PO Q8H for Nausea, #15 TAB 0 Refills Prov: ANTIONE BURKETT MD 07/08/18 Cholestyramine (With Sugar) (CHOLESTYRAMINE PACKET) 4 Gm Powd.pack 4 GM PO BID, #60 PACKET 0 Refills Prov: ANTIONE BURKETT MD 07/08/18 Departure Forms: ER Transition Record, Medications Reconciliation, Off Work/School Form, School or Work Release?: Work Number of days to be released: 2 Patient Portal Information Patient Instructions: Biliary Colic (GEN) ANTIONE BURKETT MD Jul 08, 2018 09:19
[2018-07-08] MEDS ORDERED: LATODPT OD (09:30)
[2018-07-08] MEDS ORDERED: NS(*) 0.9% 1000 ML BAG 1,000 ML IV ONE (09:30)
[2018-07-08] MEDS ORDERED: KETOROLAC 30 MG/ML VIAL IVP ONE (09:30)
[2018-07-08] MEDS ORDERED: ONDANSETRON 4 MG/2 ML VIAL IVP ONE (09:30)
[2018-07-08] MEDS ORDERED: MORPHINE 4 MG/ML SDV IVP ONE (09:30)
[2018-07-08] MEDS ORDERED: ATOR40TA24 PO (09:30)
[2018-07-08] MEDS ORDERED: HYDROMORPHONE HCL 1 MG/ML SYRINGE IVP ONE ×2 (09:35→10:35)
[2018-07-08] MEDS ORDERED: IOPAMIDOL 76% 150 ML INFUS BTL 150 ML ONE (09:47)
[2018-07-08 10:06] LABS: PLATELET COUNT, AUTOMATED 305 K/uL (150-450)
--- NOTE | 2018-07-08 10:50 | RADIOLOGY IMAGING REPORT ---
FACILITY: [facility] - [place] PATIENT NAME: Nolan Walton : 1980 MR: [id number] V: [id number] EXAM DATE: ORDERING PHYSICIAN: NOLAN BURKETT TECHNOLOGIST: Location: [facility] [place] Patient: Nolan Walton : 1980 Visit/Account:[id number] Date of Sevice: 07/08/2018 CT ABDOMEN PELVIS W/ CON HISTORY: Recurring abdominal pain, diarrhea and vomiting. Epigastric pain. TECHNIQUE: CT abdomen and pelvis with intravenous contrast. One of the following dose optimization techniques was utilized in the performance of this exam: Autom ated exposure control; adjustment of the mA and/or kV according to the patient's size; or use of an i terative reconstruction technique. Specific details can be referenced in the facility's radiology C T exam operational policy. CONTRAST: 75 mL Isovue-370 IV COMPARISON: 05/19/2018 FINDINGS: Visualized lung bases: Minimal dependent atelectasis. Hepatobiliary: Centrally hypoenhancing and subtly peripherally hyperenhancing 1.2 cm lesion caudal r ight hepatic lobe (59), subtly present in retrospect dating back to at least 2015 if not 2009 and l ikely a small cavernous hemangioma.. Liver otherwise unremarkable. Gallbladder surgically absent. No biliary obstruction. Spleen: Negative. Adrenals: Negative. Pancreas: Negative. Kidneys/: Negative. GI: Incidentally noted small 2nd segment duodenal diverticula. Stomach and small bowel otherwise devin ssly unremarkable. Appendix not able to be visualized, potentially surgically absent, without inflamm atory changes in the region of cecal tip to otherwise suggest acute appendicitis. No bowel wall thick ening or surrounding inflammation. Vessels/spaces/nodes: Borderline enlarged gastrohepatic lymph node (2/20), only minimally increased since at least 06/2015 and likely chronic. Elsewhere no adenopathy. No free fluid. No free gas. Bones/soft tissues: Unremarkable. IMPRESSION: 1. No evidence of an acute intra-abdominal/pelvic process to explain patient's reported symptoms. 2. Chronic and/or benign-appearing changes detailed above. Report Dictated By: El Rojas MD at 07/08/2018 10:38 AM Report E-Signed By: El Rojas MD at 07/08/2018 10:46 AM WSN:[id number]
[2018-07-08 11:00] VITALS: BP 119/80
[2018-07-08] MEDS ORDERED: ONDA4TAB97 PO (11:14)
[2018-07-08] MEDS ORDERED: OXYC-865 PO (11:14)
[2018-07-08] MEDS ORDERED: CHOL4PAC15 PO (11:14)
== END 2018-07-08 11:32 | disposition home or self-care (01) ==
LOC: ER 09:28
DX: K80.50 Calculus of bile duct without cholangitis or cholecystitis without obstruction (principal)
CPT/HCPCS: 74177; 81001; 83690; 85025; 86677; 96361; 96374; 96375; 96376; 99284; J1170; J1885; J2405; J7030; Q9967; 82040; 82247; 82310; 82374; 82435; 82565; 82947; 84075; 84132; 84155; 84295; 84450; 84460; 84520

== ENCOUNTER 2018-07-22 19:46 | Observation (INO) | payer BC ==
[~2018-07-22] VITALS: Ht 185.4 cm; Wt 113.4 kg
[~2018-07-22 19:46] MED LIST changes: -LEVA15HF2 INH; -PRED-1 PO
[2018-07-22] MEDS ORDERED: methylPREDNIS SUCC 125 MG/2ML IVP ONE (19:50)
[2018-07-22] MEDS ORDERED: ONDANSETRON 4 MG/2 ML VIAL IVP ONE (19:50)
[2018-07-22] MEDS ORDERED: FAMOTIDINE(*) 20MG/50ML PREMIX 50 ML IVPB ONE (19:50)
[2018-07-22] MEDS ORDERED: NS(*) 0.9% 1000 ML BAG 1,000 ML IV ONE ×3 (19:50→22:05)
[2018-07-22] MEDS ORDERED: ONDANSETRON 4 MG/2 ML VIAL ONE (19:52)
--- NOTE | 2018-07-22 19:53 | ER Report ---
History and Physical Time Seen By MD: 19:46 HPI/ROS CHIEF COMPLAINT: shortness of breath, chest tightness HISTORY OF PRESENT ILLNESS: This is a 38 year old male. He was at urgent care [facility] for symptoms of sore throat, rhinorrhea, shortness of breath, and tremors. He had these symptoms for a couple of days, worsening. Had tried inhalers at home for his asthma, no improvement. Had vomiting and chills, worsening this evening, vomited increased about 5 episodes starting at 1700 hours. He has chest pain and tightness. Has chronic right upper abdominal pain followed by Dr. Gary and history of cholecystecomy, but still chronic pain, on cholestyramine. Had episode of vomiting at urgent care, immediately followed by worsening breathing. Urgent care noted oxygen dropping, patient feeling like he was choking. Given Epinephrine and Xopenex with some improvement, but worsened shaking. Seemed to improve after the epinephrine, but then sats started dropping again with worsening chest pain and shortness of breath and the feeling of choking. Called EMS who arrived and evaluated. On arrival here in the ER still with severe shortness of breath, although oxygen is now doing better. Still with sore throat, chest tightness, severe shaking/trembling. Says he has history of essential tremor that worsens with breathing treatments, but this is much worse than usual. Has felt febrile at times today, but has not taken his temperature. Poor oral intake today. Allergies: Coded Allergies: adhesive (Verified Adverse Reaction, Intermediate, ITCHING, 07/22/18) Uncoded Allergies: HAYFEVER (Allergy, Mild, SINUS PROBLEMS, 08/27/11) Home Meds Active Scripts Cholestyramine (With Sugar) (CHOLESTYRAMINE PACKET) 4 Gm Powd.pack, 4 GM PO TID, #90 PACKET 6 Refills Prov:COLLIN GARY MD 07/19/18 Ondansetron Hcl (ZOFRAN) 4 Mg Tablet, 4 MG PO Q8H for Nausea, #15 TAB 0 Refills Prov:ANTIONE BURKETT MD 07/08/18 Oxycodone Hcl/Acetaminophen (PERCOCET 5-325 MG TABLET) 1 Each Tablet, 1 EACH PO Q4H for PAIN, #20 TAB 0 Refills Prov:ANTIONE BURKETT MD 07/08/18 Promethazine Hcl (PROMETHAZINE HCL) 25 Mg Tablet, 25 MG PO Q8H for 7 Days, #14 TAB Prov:CELESTINO CARDENAS MD 05/19/18 Pantoprazole Sodium (PANTOPRAZOLE SODIUM) 40 Mg Tablet.dr, 40 MG PO QDAY, #30 TAB.SR Prov:ANGI SOUZA MUMPS DEVELOPER 06/22/15 Ondansetron 4 Mg Odt (ONDANSETRON 4 MG ODT) 4 Mg Tab.rapdis, 4 MG PO Q6H, #10 TAB One tablet every 6 hours as needed for nausea and vomiting. Prov:ANGI SOUZA MUMPS DEVELOPER 06/22/15 Reported Medications Atorvastatin Calcium (LIPITOR) 40 Mg Tablet, 1 TAB PO QDAY, TAB 07/08/18 Latanoprost (TRAVATAN Z) 2.5 Ml Soln, 2.5 ML OD 07/08/18 Metoprolol Succinate (METOPROLOL SUCCINATE) 50 Mg Tab.er.24h, 1 TAB PO QDAY, TAB 05/19/18 Venlafaxine Hcl (EFFEXOR XR) 150 Mg Cap.er.24h, 175 MG PO QDAY 03/25/16 Albuterol Sulfate (Albuterol Sulfate Hfa) 8.5 Gm Hfa.aer.ad, 8.5 GM IH Q4H PRN, 0 Refills 02/16/11 Fluoxetine Hcl (Prozac) 40 Mg Capsule, 40 MG PO QDAY, #20 0 Refills 02/16/11 Reviewed Nurses Notes: Yes Hx Smoking: No Smoking Status: Never Smoker Hx Substance Use Disorder: No Hx Alcohol Use: No Constitutional Vital Sign - Last 24 Hours 07/22/18 07/22/18 07/22/18 07/22/18 19:49 19:51 20:01 20:16 Pulse 160 121 Resp 20 23 21 B/P (MAP) 117/58 117/58 (77) Pulse Ox 92 95 O2 Delivery Room Air 07/22/18 07/22/18 07/22/18 07/22/18 20:30 20:31 20:46 20:48 Pulse 122 120 Resp 11 20 B/P (MAP) 89/64 (72) Pulse Ox 96 92 O2 Flow Rate 2.0 07/22/18 07/22/18 07/22/18 07/22/18 20:51 20:56 20:56 21:00 Pulse 118 113 Resp 16 B/P (MAP) 102/60 (74) Pulse Ox 90 96 O2 Delivery Nasal Cannula O2 Flow Rate 2.0 07/22/18 07/22/18 07/22/18 07/22/18 21:02 21:06 21:21 21:30 Pulse 126 124 127 Resp 16 B/P (MAP) 97/51 (66) Pulse Ox 90 92 07/22/18 07/22/18 07/22/18 07/22/18 21:51 22:00 22:15 22:30 Pulse 118 120 115 118 Resp 14 9 21 B/P (MAP) 109/61 (77) Pulse Ox 87 88 93 93 07/22/18 07/22/18 07/22/18 07/22/18 22:45 23:00 23:15 23:30 Pulse 118 117 113 119 Resp 25 21 22 17 B/P (MAP) 103/51 (68) 107/64 (78) Pulse Ox 92 92 92 92 07/22/18 07/22/18 07/23/18 23:45 23:50 00:00 Pulse 115 116 Resp 25 21 B/P (MAP) 106/63 (77) Pulse Ox 93 93 Intake and Output 07/22/18 07/22/18 07/23/18 14:59 22:59 06:59 Intake Total 2150 ml 1000 ml Balance 2150 ml 1000 ml Physical Exam General Appearance: The patient is alert. Severe distress, but seeming to be breathing better. Did discuss that if things worsened we would need to consider intubating, and the patient expressed understanding. Ill appearing. Eyes: Pupils are equal, round. Reactive to light. No pallor, injection or icterus. Extraocular movements are intact. ENT: Mucous membranes are moist. Normal oral mucosa. Posterior oropharynx is normal. Some rhinorrhea and congestion. Neck: Supple and non tender. Midline trachea. Did not appreciate lymphadenopathy. Respiratory: Lungs with wheezing on expiration, as well as rhonchi. Did not appreciate any rales. He is having increased work of breathing, but no retractions noted. Cardiovascular: Tachycardia, appears sinus tach on monitor. Can not hear any murmurs, gallops or rubs. Normal capillary refill. No edema. Gastrointestinal: Abdomen is soft, tender in right upper and epigastric area, this is chronic for him. No other abdominal pain at this time. Nondistended. Guarding, but no rebound. No masses or organomegaly. Normal active bowel sounds. No costovertebral angle tenderness with percussion. Neurological: Alert and oriented x3. Cranial nerves II through XII show no acute deficits on my exam. No focal neurologic deficits in the extremities. Skin: Warm and diaphoretic. No rashes. Musculoskeletal: Extremities are nontender. No tenderness in palpation of the cervical, thoracic and lumbar spine. DIFFERENTIAL DIAGNOSIS: After history and physical exam, differential diagnosis was considered for a patient that is brought in with acute respiratory distress who is been having symptoms suggesting viral syndrome but would consider that he may have had a pulmonary infectious process such as pneumonia, possible aspiration, some type of allergic reaction, severe dehydration, or other metabolic problem. Medical Decision Making Data Points Result Diagram: 07/22/18200407/22/182004 Laboratory Hematology Test 07/22/18 20:05 07/22/18 21:04 07/22/18 22:10 07/22/18 22:18 Red Blood Count 5.63 M/uL (4.00-5.60) Mean Corpuscular Volume 86.9 fL (80.0-96.0) Mean Corpuscular Hemoglobin 29.2 pg (26.0-33.0) Mean Corpuscular Hemoglobin Concent 33.6 g/dL (32.0-36.0) Red Cell Distribution Width 13.9 % (11.5-14.5) Mean Platelet Volume 8.5 fL (7.2-11.1) Neutrophils (%) (Auto) 60.0 % (39.4-72.5) Lymphocytes (%) (Auto) 26.4 % (17.6-49.6) Monocytes (%) (Auto) 8.6 % (4.1-12.4) Eosinophils (%) (Auto) 4.0 % (0.4-6.7) Basophils (%) (Auto) 1.0 % (0.3-1.4) Nucleated RBC Relative Count (auto) 0.0 /100WBC Neutrophils # (Auto) 13.4 K/uL (2.0-7.4) Lymphocytes # (Auto) 5.9 K/uL (1.3-3.6) Monocytes # (Auto) 1.9 K/uL (0.3-1.0) Eosinophils # (Auto) 0.9 K/uL (0.0-0.5) Basophils # (Auto) 0.2 K/uL (0.0-0.1) Nucleated RBC Absolute Count (auto) 0.01 K/uL Sodium Level 143 mmol/L (137-145) Potassium Level 3.3 mmol/L (3.5-5.0) Chloride Level 106 mmol/L (98-107) Carbon Dioxide Level 20 mmol/L (22-30) Blood Urea Nitrogen 9 mg/dl (9-21) Creatinine 1.20 mg/dl (0.66-1.25) Glomerular Filtration Rate Calc > 60.0 Random Glucose 153 mg/dl (75-110) Calcium Level 9.8 mg/dl (8.4-10.2) Total Bilirubin 1.9 mg/dl (0.2-1.3) Aspartate Amino Transf (AST/SGOT) 43 U/L (0-35) Alanine Aminotransferase (ALT/SGPT) 83 U/L (0-56) Alkaline Phosphatase 126 U/L (0-126) Troponin I < 0.012 ng/ml Total Protein 7.5 g/dl (6.3-8.2) Albumin 4.5 g/dl (3.5-5.0) Amylase Level 68 U/L (0-110) Lipase 283 U/L (23-300) Influenza Virus Type A (PCR) Negative (NEGATIVE) Influenza Virus Type B (PCR) Negative (NEGATIVE) Urine Color Yellow Urine Clarity Clear Urine pH 7.0 pH (4.8-9.5) Urine Specific Hodges 1.024 Urine Protein Negative mg/dL (NEGATIVE) Urine Glucose (UA) Negative mg/dL (NEGATIVE) Urine Ketones Negative mg/dL (NEGATIVE) Urine Blood Negative (NEGATIVE) Urine Nitrite Negative (NEGATIVE) Urine Bilirubin Negative (NEGATIVE) Urine Urobilinogen Negative mg/dL (0.2-1.9) Urine Leukocyte Esterase Negative (NEGATIVE) Urine RBC <1 /HPF (0-2/HPF) Urine WBC 1 /HPF (0-5/HPF) Urine Squamous Epithelial Cells None /LPF (</=FEW) Urine Bacteria Negative /HPF (NONE-FEW) Urine Mucus None /HPF (NONE-FEW) Lactate 3.0 mmol/L (0.7-2.1) Chemistry Test 07/22/18 20:05 07/22/18 21:04 07/22/18 22:10 07/22/18 22:18 White Blood Count 22.3 k/uL (4.5-11.0) Red Blood Count 5.63 M/uL (4.00-5.60) Hemoglobin 16.4 g/dL (14.0-18.0) Hematocrit 49.0 % (42.0-52.0) Mean Corpuscular Volume 86.9 fL (80.0-96.0) Mean Corpuscular Hemoglobin 29.2 pg (26.0-33.0) Mean Corpuscular Hemoglobin Concent 33.6 g/dL (32.0-36.0) Red Cell Distribution Width 13.9 % (11.5-14.5) Platelet Count 328 K/uL (150-450) Mean Platelet Volume 8.5 fL (7.2-11.1) Neutrophils (%) (Auto) 60.0 % (39.4-72.5) Lymphocytes (%) (Auto) 26.4 % (17.6-49.6) Monocytes (%) (Auto) 8.6 % (4.1-12.4) Eosinophils (%) (Auto) 4.0 % (0.4-6.7) Basophils (%) (Auto) 1.0 % (0.3-1.4) Nucleated RBC Relative Count (auto) 0.0 /100WBC Neutrophils # (Auto) 13.4 K/uL (2.0-7.4) Lymphocytes # (Auto) 5.9 K/uL (1.3-3.6) Monocytes # (Auto) 1.9 K/uL (0.3-1.0) Eosinophils # (Auto) 0.9 K/uL (0.0-0.5) Basophils # (Auto) 0.2 K/uL (0.0-0.1) Nucleated RBC Absolute Count (auto) 0.01 K/uL Glomerular Filtration Rate Calc > 60.0 Calcium Level 9.8 mg/dl (8.4-10.2) Total Bilirubin 1.9 mg/dl (0.2-1.3) Aspartate Amino Transf (AST/SGOT) 43 U/L (0-35) Alanine Aminotransferase (ALT/SGPT) 83 U/L (0-56) Alkaline Phosphatase 126 U/L (0-126) Troponin I < 0.012 ng/ml Total Protein 7.5 g/dl (6.3-8.2) Albumin 4.5 g/dl (3.5-5.0) Amylase Level 68 U/L (0-110) Lipase 283 U/L (23-300) Influenza Virus Type A (PCR) Negative (NEGATIVE) Influenza Virus Type B (PCR) Negative (NEGATIVE) Urine Color Yellow Urine Clarity Clear Urine pH 7.0 pH (4.8-9.5) Urine Specific Hodges 1.024 Urine Protein Negative mg/dL (NEGATIVE) Urine Glucose (UA) Negative mg/dL (NEGATIVE) Urine Ketones Negative mg/dL (NEGATIVE) Urine Blood Negative (NEGATIVE) Urine Nitrite Negative (NEGATIVE) Urine Bilirubin Negative (NEGATIVE) Urine Urobilinogen Negative mg/dL (0.2-1.9) Urine Leukocyte Esterase Negative (NEGATIVE) Urine RBC <1 /HPF (0-2/HPF) Urine WBC 1 /HPF (0-5/HPF) Urine Squamous Epithelial Cells None /LPF (</=FEW) Urine Bacteria Negative /HPF (NONE-FEW) Urine Mucus None /HPF (NONE-FEW) Lactate 3.0 mmol/L (0.7-2.1) Toxicology Test 07/22/18 22:10 Urinalysis Test 07/22/18 22:10 Urine Color Yellow Urine Clarity Clear Urine pH 7.0 pH (4.8-9.5) Urine Specific Hodges 1.024 Urine Protein Negative mg/dL (NEGATIVE) Urine Glucose (UA) Negative mg/dL (NEGATIVE) Urine Ketones Negative mg/dL (NEGATIVE) Urine Blood Negative (NEGATIVE) Urine Nitrite Negative (NEGATIVE) Urine Bilirubin Negative (NEGATIVE) Urine Urobilinogen Negative mg/dL (0.2-1.9) Urine Leukocyte Esterase Negative (NEGATIVE) Urine RBC <1 /HPF (0-2/HPF) Urine WBC 1 /HPF (0-5/HPF) Urine Squamous Epithelial Cells None /LPF (</=FEW) Urine Bacteria Negative /HPF (NONE-FEW) Urine Mucus None /HPF (NONE-FEW) EKG/Imaging EKG Interpretation 12 lead EKG: Rhythm: Sinus tachycardia, rate 1:30 [place]: normal QRS: normal ST segments: I do not see any signs of ischemia or ST elevations Monitor Interpretation: Sinus Tachycardia Imaging Chest x-ray was done at urgent care and they did send a disc but I was unable to open the files on the desk to view the images. Repeat chest x-ray was obtained Examination: CHEST SINGLE AP Comparison: 05/19/2018 and earlier. History: vomiting, short of breath Findings: Cardiac and hilar contour size is within normal limits. An azygos fissure is incidentally noted. No new or enlarging consolidation, nodule, or evidence of acute peribronchial inflammation. No pneumothorax, edema, or effusion. Visualized bowel gas pattern is within normal limits. Osseous structures are intact. IMPRESSION: No findings of acute cardiopulmonary disease. Report Dictated By: Rickie Stevens MD at 07/22/2018 8:[address] PE, ABDOMEN AND PELVIS DATE: 07/22/2018 10:32 PM INDICATION: Chest pain, fever/chills, abdominal pain. COMPARISON: CT abdomen and pelvis 07/08/2018, CTA chest 06/23/2015. TECHNIQUE: Axial CT angiogram was obtained through the chest with intravenous contrast and portal venous phase imaging through the abdomen and pelvis. Sagittal and coronal MPR reconstructions were performed, as well as MIP coronal reformation of the chest. 75 mL isovue 370 One of the following dose optimization techniques was utilized in the performance of this exam: Automated exposure control; adjustment of the mA and/or kV according to the patient's size; or use of an iterative reconstruction technique. Specific details can be referenced in the facility's radiology CT exam operational policy. FINDINGS: CHEST: Thyroid / Thoracic Inlet: No visualized thyroid nodule or supraclavicular lymphadenopathy. Pulmonary Arteries: No apparent pulmonary embolism. Heart and Aorta: Normal-size heart with no pericardial effusion. Nonaneurysmal thoracic aorta. Mediastinum and Madeline: No lymphadenopathy. Residual thymic tissue. Lungs and Pleura: No pleural effusion or pneumothorax. Mild scarring/atelectasis. Azygos lobe. Breast and Axilla: No axillary lymphadenopathy. Bones and Soft Tissues: No suspicious osseous or soft tissue abnormality. ABDOMEN AND PELVIS: Liver and hepatic vasculature: Subtle hyperattenuating lesion in the inferior margin of liver on image 77 series 2 again likely represents a hemangioma measures approximately 2.2 cm in diameter. No acute abnormality or suspicious lesion. Gallbladder and bile ducts: Cholecystectomy. Spleen: Upper limit normal size. Pancreas: Normal. Adrenals: Normal. Kidneys, ureters and bladder: Normal. Retroperitoneum and aorta: Normal. GI tract, mesentery and peritoneum: Nonacute. The appendix again may be surgically absent. Prostate and seminal vesicles: Normal. Bones and soft tissues: No acute abnormality or suspicious lesion. IMPRESSION: No apparent pulmonary embolism or other acute abnormality in the chest, abdomen and pelvis. Nonacute findings as described. Report Dictated By: Vamsi Green MD at 07/22/2018 10:[address] NECK WITH CONTRAST - 07/22/2018 21:11 HISTORY: Sore throat. TECHNIQUE: Axial postcontrast CT images of the neck were obtained, sagittal and coronal reconstructions were provided. A total of 75 mL of Isovue-370 contrast was administered intravenously. One of the following dose optimization techniques was utilized in the performance of this exam: Automated exposure control; adjustment of the mA and/or kV according to the patient's size; or use of an iterative reconstruction technique. Specific details can be referenced in the facility's radiology CT exam operational policy. FINDINGS: Aerodigestive tract: In the left posterior laryngeal area, there are at least 3 hyperattenuating nodular structures as can be seen on axial images 57 through 59 and sagittal images 38 through 40. In the axial plane, the largest measures 13 x 6 mm on image 59. The laryngeal ventricle on the left appears effaced. Overall, the airway is patent. Lymph nodes: There is at least one asymmetrically enlarged left supraclavicular node measuring 14 x 11 mm on image 70 series 5. Salivary glands: Normal. Thyroid: Normal. Vascular structures: Normal. Orbits/paranasal sinuses/skull base: Lens surgery on the left. Cervical spine: Nonacute. IMPRESSION: 1. Several nodular hyperattenuating lesions in the region of the left posterior larynx are nonspecific. Differential considerations include neoplasm and proteinaceous laryngocele or retention cyst among others. Recommend ENT consultation for consideration of direct visualization. 2. At least one nonspecific mildly enlarged left supraclavicular node. Recommend attention to this on follow-up. Dr. Green discussed this case with GIOVANNA OWEN on 07/22/2018 11:09 PM. Report Dictated By: Vamsi Green MD at 07/22/2018 10:47 PM ED Course/Re-evaluation Clinical Indication for ER IV: Hydration, IV Access ED Course On arrival, because of continued distress in the situation described at urgent care, another IV was placed and the patient was started on Solu-Medrol IV, Pepcid IV, a liter of normal saline, and another Xopenex breathing treatment was ordered. He had Benadryl from EMS. Epinephrine at urgent care. We obtained an EKG and based on EKG and quality assurance monitor final, this appears to be a sinus tachycardia. Patient is still very anxious, main complaints are of sore throat, chest pain and tightness with trouble breathing. He still has some right upper quadrant abdominal pain but this is chronic for him. Labs were obtained and he does have a leukocytosis of 22,000. His lactate was elevated as well at 8.6. We provided Zofran for nausea but this did not help much. Then later gave some Phenergan. Also gave some Dilaudid for the chest and throat discomfort. He is now on 1-2 L by nasal cannula satting around 93%. Tachycardia has come down a little bit still present. 3 L of normal saline given and repeat lactate came down to 3.0. Imaging did not show any signs of pulmonary infectious process. He did have some incidental finding of nodules on soft tissue neck CT scan and I did discuss this with the patient. This appears to be unlikely related to current problem. After everything is done, it appears that the patient likely has a viral syndrome with some dehydration from his vomiting today. He may have had some aspiration with the vomiting at urgent care which set off the acute chain of events. This could also have been some severe spasming from the vomiting as well related to his asthma. At this point we are just doing supportive treatment for these findings and have not done any antibiotics. He has received blood and urin e cultures. I discussed the case with Dr. Hobson. Did accept the patient for admission. Decision to Disposition Date: July 22, 2018 Decision to Disposition Time: 23:36 Depart Departure Latest Vital Signs Vital Signs Date Time Temp Pulse Resp B/P (MAP) Pulse Ox O2 Delivery O2 Flow Rate FiO2 07/23/18 00:00 106/63 (77) 07/22/18 23:50 116 21 93 07/22/18 20:56 Nasal Cannula 2.0 Impression: Primary Impression: Nausea and vomiting in adult Additional Impressions: Asthma exacerbation Respiratory distress Condition: Improved Disposition: Admitted from ER Referrals: MEGAN HOWELL (PCP) Problem Qualifiers Additional Impressions: Asthma exacerbation Asthma severity: moderate Asthma persistence: persistent Qualified Codes: J45.41 - Moderate persistent asthma with (acute) exacerbation GIOVANNA OWEN MD July 22, 2018 19:53
[2018-07-22] MEDS ORDERED: ACETAMINOPHEN(*)1000 MG/100 ML 100 ML IVPB ONE (20:10)
[2018-07-22] MEDS ORDERED: MORPHINE 4 MG/ML SDV IVP ONE (20:10)
[2018-07-22 20:12] LABS: PLATELET COUNT, AUTOMATED 328 K/uL (150-450)
[2018-07-22] MEDS ORDERED: HYDROMORPHONE HCL 1 MG/ML SYRINGE IVP ONE ×2 (20:30→23:35)
[2018-07-22] MEDS ORDERED: PROMETHAZINE 25 MG/ML 1 ML AMP IVP ONE ×2 (20:30→23:35)
[2018-07-22] MEDS ORDERED: LEVALBUTEROL 1.25 MG/3 ML NEB NEB ONE (20:45)
--- NOTE | 2018-07-22 21:05 | RADIOLOGY IMAGING REPORT ---
[place] [facility] [place] Nolan Walton : 1980 MR: [id number] V: [id number] EXAM DATE: ORDERING PHYSICIAN: GIOVANNA OWEN TECHNOLOGIST: Location: [facility] Patient: Nolan Walton : 1980 Visit/Account:[id number] Date of Sevice: 07/22/2018 Examination: CHEST SINGLE AP Comparison: 05/19/2018 and earlier. History: vomiting, short of breath Findings: Cardiac and hilar contour size is within normal limits. An azygos fissure is incidentally n oted. No new or enlarging consolidation, nodule, or evidence of acute peribronchial inflammation. No pneumothorax, edema, or effusion. Visualized bowel gas pattern is within normal limits. Osseous struc tures are intact. IMPRESSION: No findings of acute cardiopulmonary disease. Report Dictated By: Rickie Stevens MD at 07/22/2018 8:58 PM Report E-Signed By: Rickie Stevens MD at 07/22/2018 9:00 PM WSN:[id number]
[2018-07-22] MEDS ORDERED: NS(*) 0.9% 50 ML BAG 50 ML ONE (21:37)
[2018-07-22] MEDS ORDERED: IOPAMIDOL 76% 150 ML INFUS BTL 150 ML ONE (21:37)
--- NOTE | 2018-07-22 22:50 | RADIOLOGY IMAGING REPORT ---
FACILITY: [facility] PATIENT NAME: Nolan Walton : 1980 MR: [id number] V: [id number] EXAM DATE: ORDERING PHYSICIAN: GIOVANNA OWEN TECHNOLOGIST: Location: [facility] Patient: Nolan Walton : 1980 Visit/Account:[id number] Date of Sevice: 07/22/2018 CT PE, ABDOMEN AND PELVIS DATE: 07/22/2018 10:32 PM INDICATION: Chest pain, fever/chills, abdominal pain. COMPARISON: CT abdomen and pelvis 07/08/2018, CTA chest 06/23/2015. TECHNIQUE: Axial CT angiogram was obtained through the chest with intravenous contrast and portal ve nous phase imaging through the abdomen and pelvis. Sagittal and coronal MPR reconstructions were per formed, as well as MIP coronal reformation of the chest. 75 mL isovue 370 One of the following dose optimization techniques was utilized in the performance of this exam: Automated exposure control; ad justment of the mA and/or kV according to the patient's size; or use of an iterative reconstruction technique. Specific details can be referenced in the facility's radiology CT exam operational policy . FINDINGS: CHEST: Thyroid / Thoracic Inlet: No visualized thyroid nodule or supraclavicular lymphadenopathy. Pulmonary Arteries: No apparent pulmonary embolism. Heart and Aorta: Normal-size heart with no pericardial effusion. Nonaneurysmal thoracic aorta. Mediastinum and Madeline: No lymphadenopathy. Residual thymic tissue. Lungs and Pleura: No pleural effusion or pneumothorax. Mild scarring/atelectasis. Azygos lobe. Breast and Axilla: No axillary lymphadenopathy. Bones and Soft Tissues: No suspicious osseous or soft tissue abnormality. ABDOMEN AND PELVIS: Liver and hepatic vasculature: Subtle hyperattenuating lesion in the inferior margin of liver on robert ge 77 series 2 again likely represents a hemangioma measures approximately 2.2 cm in diameter. No ac georges abnormality or suspicious lesion. Gallbladder and bile ducts: Cholecystectomy. Spleen: Upper limit normal size. Pancreas: Normal. Adrenals: Normal. Kidneys, ureters and bladder: Normal. Retroperitoneum and aorta: Normal. GI tract, mesentery and peritoneum: Nonacute. The appendix again may be surgically absent. Prostate and seminal vesicles: Normal. Bones and soft tissues: No acute abnormality or suspicious lesion. IMPRESSION: No apparent pulmonary embolism or other acute abnormality in the chest, abdomen and pelv is. Nonacute findings as described. Report Dictated By: Vamsi Green MD at 07/22/2018 10:31 PM Report E-Signed By: Vamsi Green MD at 07/22/2018 10:47 PM WSN:[id number]
--- NOTE | 2018-07-22 22:51 | RADIOLOGY IMAGING REPORT ---
FACILITY: [facility] [place] PATIENT NAME: Nolan Walton : 1980 MR: [id number] V: [id number] EXAM DATE: ORDERING PHYSICIAN: GIOVANNA OWEN TECHNOLOGIST: Location: [facility] [place] Patient: Nolan Walton : 1980 Visit/Account:[id number] Date of Sevice: 07/22/2018 CT PE, ABDOMEN AND PELVIS DATE: 07/22/2018 10:32 PM INDICATION: Chest pain, fever/chills, abdominal pain. COMPARISON: CT abdomen and pelvis 07/08/2018, CTA chest 06/23/2015. TECHNIQUE: Axial CT angiogram was obtained through the chest with intravenous contrast and portal ve nous phase imaging through the abdomen and pelvis. Sagittal and coronal MPR reconstructions were per formed, as well as MIP coronal reformation of the chest. 75 mL isovue 370 One of the following dose optimization techniques was utilized in the performance of this exam: Automated exposure control; ad justment of the mA and/or kV according to the patient's size; or use of an iterative reconstruction technique. Specific details can be referenced in the facility's radiology CT exam operational policy . FINDINGS: CHEST: Thyroid / Thoracic Inlet: No visualized thyroid nodule or supraclavicular lymphadenopathy. Pulmonary Arteries: No apparent pulmonary embolism. Heart and Aorta: Normal-size heart with no pericardial effusion. Nonaneurysmal thoracic aorta. Mediastinum and Madeline: No lymphadenopathy. Residual thymic tissue. Lungs and Pleura: No pleural effusion or pneumothorax. Mild scarring/atelectasis. Azygos lobe. Breast and Axilla: No axillary lymphadenopathy. Bones and Soft Tissues: No suspicious osseous or soft tissue abnormality. ABDOMEN AND PELVIS: Liver and hepatic vasculature: Subtle hyperattenuating lesion in the inferior margin of liver on robert ge 77 series 2 again likely represents a hemangioma measures approximately 2.2 cm in diameter. No ac georges abnormality or suspicious lesion. Gallbladder and bile ducts: Cholecystectomy. Spleen: Upper limit normal size. Pancreas: Normal. Adrenals: Normal. Kidneys, ureters and bladder: Normal. Retroperitoneum and aorta: Normal. GI tract, mesentery and peritoneum: Nonacute. The appendix again may be surgically absent. Prostate and seminal vesicles: Normal. Bones and soft tissues: No acute abnormality or suspicious lesion. IMPRESSION: No apparent pulmonary embolism or other acute abnormality in the chest, abdomen and pelv is. Nonacute findings as described. Report Dictated By: Vamsi Green MD at 07/22/2018 10:31 PM Report E-Signed By: Vamsi Green MD at 07/22/2018 10:47 PM WSN:[id number]
--- NOTE | 2018-07-22 23:13 | RADIOLOGY IMAGING REPORT ---
FACILITY: [facility] [place] PATIENT NAME: Nolan Walton : 1980 MR: [id number] V: [id number] EXAM DATE: ORDERING PHYSICIAN: GIOVANNA OWEN TECHNOLOGIST: Location: [facility] Patient: Nolan Walton : 1980 Visit/Account:[id number] Date of Sevice: 07/22/2018 CT NECK WITH CONTRAST - 07/22/2018 21:11 HISTORY: Sore throat. TECHNIQUE: Axial postcontrast CT images of the neck were obtained, sagittal and coronal reconstructio ns were provided. A total of 75 mL of Isovue-370 contrast was administered intravenously. One of t he following dose optimization techniques was utilized in the performance of this exam: Automated exp osure control; adjustment of the mA and/or kV according to the patient's size; or use of an iterative reconstruction technique. Specific details can be referenced in the facility's radiology CT exam o perational policy. FINDINGS: Aerodigestive tract: In the left posterior laryngeal area, there are at least 3 hyperattenuating nodu lar structures as can be seen on axial images 57 through 59 and sagittal images 38 through 40. In th e axial plane, the largest measures 13 x 6 mm on image 59. The laryngeal ventricle on the left appea rs effaced. Overall, the airway is patent. Lymph nodes: There is at least one asymmetrically enlarged left supraclavicular node measuring 14 x 1 1 mm on image 70 series 5. Salivary glands: Normal. Thyroid: Normal. Vascular structures: Normal. Orbits/paranasal sinuses/skull base: Lens surgery on the left. Cervical spine: Nonacute. IMPRESSION: 1. Several nodular hyperattenuating lesions in the region of the left posterior larynx are nonspecif ic. Differential considerations include neoplasm and proteinaceous laryngocele or retention cyst dylon ng others. Recommend ENT consultation for consideration of direct visualization. 2. At least one nonspecific mildly enlarged left supraclavicular node. Recommend attention to this on follow-up. Dr. Green discussed this case with GIOVANNA OWEN on 07/22/2018 11:09 PM. Report Dictated By: Vamsi Green MD at 07/22/2018 10:47 PM Report E-Signed By: Vamsi Green MD at 07/22/2018 11:10 PM WSN:[id number]
--- NOTE | 2018-07-22 23:23 | EKG ---
FACILITY: [facility] PATIENT NAME: ANTIONE BRAVO : [id number] MR: [id number] V: [id number] EXAM DATE: ORDERING PHYSICIAN: GIOVANNA OWEN TECHNOLOGIST: SHALONDA Test Reason : DYSPNEA Blood Pressure : / mmHG Vent. Rate : 130 BPM Atrial Rate : 130 BPM P-R Int : 120 ms QRS Dur : 078 ms QT Int : 350 ms P-R-T Axes : 000 005 060 degrees QTc Int : 515 ms Appears to be sinus tachycardia No acute appearing ST-T findings Confirmed by JAVIER FRANCO ([id number]) on 07/22/2018 11:30:09 PM Referred By: Confirmed By:JAVIER FRANCO
[2018-07-23 00:20] VITALS: BP 112/68
[2018-07-23] MEDS ORDERED: LEVALBUTEROL 1.25 MG/3 ML NEB NEB PRN (00:55)
[2018-07-23] MEDS ORDERED: PROMETHAZINE 25 MG/ML 1 ML AMP IVP PRN (00:55)
[2018-07-23] MEDS ORDERED: HYDROmorphone HCL 2 MG/ML SDV IVP PRN (00:55)
[2018-07-23] MEDS ORDERED: ACETAMINOPHEN 325 MG TAB PO PRN (00:55)
[2018-07-23] MEDS: NS(*) 0.9% 1000 ML BAG 1,000 ML IV PRN ×2 (01:19→21:14)
--- NOTE | 2018-07-23 01:22 | History & Physical ---
History of Present Illness Chief Complaint Short of breath History of Present Illness 38yo male with PMHx significant for asthma ("since I was a child"), multiple environmental allergies, chronic RUQ pain with N/V following cholecystectomy. He reports onset of his usual pain and nausea with vomiting earlier this evening. He did vomit forcefully. Following this he reports some coughing and wheezing. He felt significantly short of breath and used his albuterol inhaler with only slight improvement. He then presented to Urgent Care for ongoing dyspnea. While there, he reports feeling "as if my throat was going to close". He was treated with epinephrine and sent to [facility] ER. His evaluation showed an elevated WBC count and lactate level. His CXR, CT pulmonary angiogram, CT of abdomen and pelvis were all rather unremarkable. His CT soft tissue neck did show some possible adenopathy/nodularity. He was treated with oxygen supplementation and r espiratory treatments. His status improved significantly, but he was still requiring 2L oxygen. He did have cultures done, but antibiotics were not started. He did receive IV fluids as well. His lactate did improve significantly. He was recommended for admission. History Problems: (1) Asthma Status: Chronic (2) Environmental allergies Status: Chronic (3) RUQ abdominal pain Status: Chronic (4) Prostatitis Status: Resolved (5) Cholecystitis Status: Resolved (6) History of cholecystectomy Status: Resolved Home Meds Active Scripts Cholestyramine (With Sugar) (CHOLESTYRAMINE PACKET) 4 Gm Powd.pack, 4 GM PO TID, #90 PACKET 6 Refills Prov:COLLIN GARY MD 07/19/18 Ondansetron Hcl (ZOFRAN) 4 Mg Tablet, 4 MG PO Q8H for Nausea, #15 TAB 0 Refills Prov:ANTIONE BURKETT MD 07/08/18 Oxycodone Hcl/Acetaminophen (PERCOCET 5-325 MG TABLET) 1 Each Tablet, 1 EACH PO Q4H for PAIN, #20 TAB 0 Refills Prov:ANTIONE BURKETT MD 07/08/18 Promethazine Hcl (PROMETHAZINE HCL) 25 Mg Tablet, 25 MG PO Q8H for 7 Days, #14 TAB Prov:CELESTINO CARDENAS MD 05/19/18 Pantoprazole Sodium (PANTOPRAZOLE SODIUM) 40 Mg Tablet.dr, 40 MG PO QDAY, #30 TAB.SR Prov:ANGI SOUZA LACING CUTTER 06/22/15 Ondansetron 4 Mg Odt (ONDANSETRON 4 MG ODT) 4 Mg Tab.rapdis, 4 MG PO Q6H, #10 TAB One tablet every 6 hours as needed for nausea and vomiting. Prov:ANGI SOUZA LACING CUTTER 06/22/15 Reported Medications Atorvastatin Calcium (LIPITOR) 40 Mg Tablet, 1 TAB PO QDAY, TAB 07/08/18 Latanoprost (TRAVATAN Z) 2.5 Ml Soln, 2.5 ML OD 07/08/18 Metoprolol Succinate (METOPROLOL SUCCINATE) 50 Mg Tab.er.24h, 1 TAB PO QDAY, TAB 05/19/18 Venlafaxine Hcl (EFFEXOR XR) 150 Mg Cap.er.24h, 175 MG PO QDAY 03/25/16 Albuterol Sulfate (Albuterol Sulfate Hfa) 8.5 Gm Hfa.aer.ad, 8.5 GM IH Q4H PRN, 0 Refills 02/16/11 Fluoxetine Hcl (Prozac) 40 Mg Capsule, 40 MG PO QDAY, #20 0 Refills 02/16/11 Allergies: Coded Allergies: adhesive (Verified Adverse Reaction, Intermediate, ITCHING, 07/22/18) Uncoded Allergies: HAYFEVER (Allergy, Mild, SINUS PROBLEMS, 08/27/11) Patient History: FH: asthma siblings x3 FH: sleep apnea siblings x3 GERD FATHER Gallbladder disease FATHER siblings x3 Hx Smoking: No Smoking Status: Never Smoker Caffeine Intake: Soda Caffeine/Cups Per Day: 1-2 Hx Alcohol Use: No Hx Substance Use Disorder: No Review of Systems Constitutional: No Fever, No Chills Respiratory: Shortness of Breath, Cough, Wheezing Gastrointestinal: Nausea, Vomiting, Diarrhea; No Hematemesis, No Hematochezia, No Melena; Abdominal Pain Exam Vital Signs Vital Signs Date Time Temp Pulse Resp B/P (MAP) Pulse Ox O2 Delivery O2 Flow Rate FiO2 07/23/18 00:20 99.3 109 18 112/68 (83) 93 Nasal Cannula 2.0 General Appearance: Alert, Awake Neuro: No Gross deficits ENT: Posterior Pharynx Clear Neck: No Masses Cardiovascular: Regular Rate and Rhythm Respiratory: Other (Essentially clear at this time no rales or wheezes noted) Chest: No Tenderness GI: Other (soft with some reported tenderness along right costal margin) : No CVA Tenderness Extremities: Warm, Perfused Integumentary: Skin Intact without Lesion / Mass Psych: Alert & Oriented X3 Medical Decision Making Data Points Result Diagram: 07/22/18200407/22/182004 Item Value Date Time Lipase 283 U/L 07/22/182004 Amylase Level 68 U/L 07/22/182004 Albumin 4.5 g/dl 07/22/182004 Total Protein 7.5 g/dl 07/22/182004 Troponin I < 0.012 ng/ml 07/22/182004 Alkaline Phosphatase 126 U/L 07/22/182004 Alanine Aminotransferase (ALT/SGPT) 83 U/L H 07/22/182004 Aspartate Amino Transf (AST/SGOT) 43 U/L H 07/22/182004 Total Bilirubin 1.9 mg/dl H 07/22/182004 Calcium Level 9.8 mg/dl 07/22/182004 Lactate 8.3 mmol/L *H 07/22/182004 Lactate 3.0 mmol/L H 07/22/182217 Urine Mucus None /HPF 07/22/180 Urine Bacteria Negative /HPF 07/22/180 Urine Squamous Epithelial Cells None /LPF 07/22/182209 Urine WBC 1 /HPF 07/22/180 Urine RBC <1 /HPF 07/22/182209 Urine Leukocyte Esterase Negative 07/22/182209 Urine Urobilinogen Negative mg/dL 07/22/182209 Urine Bilirubin Negative 07/22/182209 Urine Nitrite Negative 07/22/180 Urine Blood Negative 07/22/182209 Urine Ketones Negative mg/dL 07/22/182209 Urine Glucose (UA) Negative mg/dL 07/22/180 Urine Protein Negative mg/dL 07/22/182209 Urine Specific Miles 1.024 07/22/182209 Urine pH 7.0 pH 07/22/180 Urine Clarity Clear 07/22/182209 Urine Color Yellow 07/22/182209 Influenza Virus Type A (PCR) Negative 07/22/182103 Influenza Virus Type B (PCR) Negative 07/22/182103 EKG / Imaging EKG Interpretation PATIENT NAME: ANTIONE WALTON : [id number] MR: [id number] V: [id number] EXAM DATE: ORDERING PHYSICIAN: GIOVANNA OWEN TECHNOLOGIST: SHALONDA Test Reason : DYSPNEA Blood Pressure : / mmHG Vent. Rate : 130 BPM Atrial Rate : 130 BPM P-R Int : 120 ms QRS Dur : 078 ms QT Int : 350 ms P-R-T Axes : 000 005 060 degrees QTc Int : 515 ms Appears to be sinus tachycardia No acute appearing ST-T findings Confirmed by JAVIER FRANCO ([id number]) on 07/22/2018 11:30:09 PM Referred By: Confirmed By:JAVIER FRANCO Imaging PATIENT NAME: Antione Walton : 1980 MR: [id number] V: [id number] EXAM DATE: ORDERING PHYSICIAN: GIOVANNA OWEN TECHNOLOGIST: Location: [facility] [place] Patient: Antione Walton : 1980 Visit/Account:[id number] Date of Sevice: 07/22/2018 CT PE, ABDOMEN AND PELVIS DATE: 07/22/2018 10:32 PM INDICATION: Chest pain, fever/chills, abdominal pain. COMPARISON: CT abdomen and pelvis 07/08/2018, CTA chest 06/23/2015. TECHNIQUE: Axial CT angiogram was obtained through the chest with intravenous contrast and portal venous phase imaging through the abdomen and pelvis. Sagittal and coronal MPR reconstructions were performed, as well as MIP coronal reformation of the chest. 75 mL isovue 370 One of the following dose optimization techniques was utilized in the performance of this exam: Automated exposure control; adjustment of the mA and/or kV according to the patient's size; or use of an iterative reconstruction technique. Specific details can be referenced in the facility's radiology CT exam operational policy. FINDINGS: CHEST: Thyroid / Thoracic Inlet: No visualized thyroid nodule or supraclavicular lymphadenopathy. Pulmonary Arteries: No apparent pulmonary embolism. Heart and Aorta: Normal-size heart with no pericardial effusion. Nonaneurysmal thoracic aorta. Mediastinum and Madeline: No lymphadenopathy. Residual thymic tissue. Lungs and Pleura: No pleural effusion or pneumothorax. Mild scarring/atelectasis. Azygos lobe. Breast and Axilla: No axillary lymphadenopathy. Bones and Soft Tissues: No suspicious osseous or soft tissue abnormality. ABDOMEN AND PELVIS: Liver and hepatic vasculature: Subtle hyperattenuating lesion in the inferior margin of liver on image 77 series 2 again likely represents a hemangioma measures approximately 2.2 cm in diameter. No acute abnormality or suspicious lesion. Gallbladder and bile ducts: Cholecystectomy. Spleen: Upper limit normal size. Pancreas: Normal. Adrenals: Normal. Kidneys, ureters and bladder: Normal. Retroperitoneum and aorta: Normal. GI tract, mesentery and peritoneum: Nonacute. The appendix again may be surgically absent. Prostate and seminal vesicles: Normal. Bones and soft tissues: No acute abnormality or suspicious lesion. IMPRESSION: No apparent pulmonary embolism or other acute abnormality in the chest, abdomen and pelvis. Nonacute findings as described. Report Dictated By: Vamsi Green MD at 07/22/2018 10:31 PM Report E-Signed By: Vamsi Green MD at 07/22/2018 10:47 PM WSN:[id number] PATIENT NAME: Antione Walton : 1980 MR: [id number] V: [id number] EXAM DATE: ORDERING PHYSICIAN: GIOVANNA OWEN TECHNOLOGIST: Location: [facility] [place] Patient: Antione Walton : 1980 Visit/Account:[id number] Date of Sevice: 07/22/2018 CT NECK WITH CONTRAST - 07/22/2018 21:11 HISTORY: Sore throat. TECHNIQUE: Axial postcontrast CT images of the neck were obtained, sagittal and coronal reconstructions were provided. A total of 75 mL of Isovue-370 contrast was administered intravenously. One of the following dose optimization techniques was utilized in the performance of this exam: Automated exposure control; adjustment of the mA and/or kV according to the patient's size; or use of an iterative reconstruction technique. Specific details can be referenced in the facility's radiology CT exam operational policy. FINDINGS: Aerodigestive tract: In the left posterior laryngeal area, there are at least 3 hyperattenuating nodular structures as can be seen on axial images 57 through 59 and sagittal images 38 through 40. In the axial plane, the largest measures 13 x 6 mm on image 59. The laryngeal ventricle on the left appears effaced. Overall, the airway is patent. Lymph nodes: There is at least one asymmetrically enlarged left supraclavicular node measuring 14 x 11 mm on image 70 series 5. Salivary glands: Normal. Thyroid: Normal. Vascular structures: Normal. Orbits/paranasal sinuses/skull base: Lens surgery on the left. Cervical spine: Nonacute. IMPRESSION: 1. Several nodular hyperattenuating lesions in the region of the left posterior larynx are nonspecific. Differential considerations include neoplasm and proteinaceous laryngocele or retention cyst among others. Recommend ENT consultation for consideration of direct visualization. 2. At least one nonspecific mildly enlarged left supraclavicular node. Recommend attention to this on follow-up. Dr. Green discussed this case with GIOVANNA OWEN on 07/22/2018 11:09 PM. Report Dictated By: Vamsi Green MD at 07/22/2018 10:47 PM Report E-Signed By: Vamsi Green MD at 07/22/2018 11:10 PM WSN:[id number] Assessment and Plan Problems: (1) Asthma exacerbation Status: Acute Assessment & Plan: It sounds like he may have had an exacerbation of his underlying asthma vs. possible aspiration with his vomiting episode. At present he appears to be doing fairly well. Will admit for ongoing respiratory treatments, steroids, oxygen supplementation. He does not appear to have infiltrate on radiology studies. Will continue to hold off on antibiotics. Watch labs. (2) RUQ abdominal pain Status: Chronic Assessment & Plan: Unsure of etiology. He is in the midst of evaluation with Dr. Gary. Will continue his usual meds. Copies to: MEGAN HOWELL; COLLIN GARY MD ; Venous Thromboembolism Antithrombotics Is Pt On Any Antithrombotics?: Yes Exam Sepsis Risk: No Definite Risk Problem Qualifiers (1) Asthma exacerbation: Asthma severity: moderate Asthma persistence: persistent Qualified Codes: J45.41 - Moderate persistent asthma with (acute) exacerbation JAVIER FRANCO MD July 23, 2018 01:22
[2018-07-23] MEDS: methylPREDNIS SUCC 125 MG/2ML IVP SCH ×3 (03:52→20:22)
[2018-07-23 03:54] VITALS: BP 108/56
[2018-07-23 05:27] LABS: PLATELET COUNT, AUTOMATED 196 K/uL (150-450)
[2018-07-23 06:45] VITALS: BP 109/71
[2018-07-23 07:44] VITALS: BP 125/72
[2018-07-23] MEDS: METOPROLOL SUCC XL 50 MG TABCR 50 MG TAB.ER.24H PO SCH (09:19)
[2018-07-23] MEDS: ATORVASTATIN 40 MG TAB PO SCH (09:19)
[2018-07-23] MEDS: MONTELUKAST SODIUM 10 MG TAB PO SCH (09:19)
[2018-07-23] MEDS: FLUoxetine HCL 20 MG CAP PO SCH (09:19)
[2018-07-23] MEDS: PANTOPRAZOLE SOD 40 MG TABEC PO SCH (09:19)
[2018-07-23] MEDS: VENLAFAXINE XR 75 MG CAPCR PO SCH (09:19)
[2018-07-23] MEDS: ENOXAPARIN 40 MG/0.4ML SYR SC SCH (09:20)
[2018-07-23] MEDS: CHOLESTYRAMINE 4 GM POWD PO SCH ×3 (10:25→21:14)
[2018-07-23] MEDS: oxyCODON/ACET (*)5/325MG (CII) 1 TAB TAB PO PRN ×2 (11:12→21:14)
[2018-07-23 11:14] VITALS: BP 103/63
--- NOTE | 2018-07-23 11:52 | Hospitalist Progress Note ---
Subjective Progress Notes Subjective He was admitted with asthma exacerbation. He reports he is improved from yesterday, but still c/o cough and some shortness of breath. He has concerns about steroids causing severe agitation. Patient Complains of: Cardiovascular: No: Chest Pain Respiratory: Cough, Shortness of Breath; No: Wheezing Physical Exam Vital Signs Date Time Temp Pulse Resp B/P (MAP) Pulse Ox O2 Delivery O2 Flow Rate FiO2 07/23/18 11:20 92 Nasal Cannula 1.0 07/23/18 11:14 98.1 94 14 103/63 (76) Intake and Output 07/23/18 06:59 Intake Total 3150 ml Balance 3150 ml Intake IV Total 3150 ml General Appearance: Alert, Awake, No Acute Distress, Afebrile Neuro: No Gross deficits Cardiovascular: Regular Rate and Rhythm Respiratory: No Respiratory Distress, Other (diminished lung sounds, clear fareed gs sounds after cough) GI: Other (c/o right upper quad abd pain ) Extremities: Warm, Perfused; No Edema Psych: Alert & Oriented X3, Appropriate Mood & Affect Result Diagram: 07/23/1851107/23/18511 Monitor Interpretation: Sinus Tachycardia Assessment and Plan Problems: (1) Asthma exacerbation Status: Acute Assessment & Plan: It sounds like he may have had an exacerbation of his underlying asthma vs. possible aspiration with his vomiting episode. At present he appears to be doing fairly well. He is receiving respiratory treatments, steroids, oxygen supplementation. He does not appear to have infiltrate on radiology studies. Will continue to hold off on antibiotics. Watch labs. Will try to stop steroids as soon as possible secondary to severe agitation. (2) RUQ abdominal pain Status: Chronic Assessment & Plan: Unsure of etiology. He is in the midst of evaluation with Dr. Dockery. Will continue his usual meds. Exam Sepsis Risk: No Definite Risk Problem Qualifiers (1) Asthma exacerbation: Asthma severity: moderate Asthma persistence: persistent Qualified Codes: J45.41 - Moderate persistent asthma with (acute) exacerbation JUNG CAMACHO July 23, 2018 11:52
[2018-07-23] MEDS ORDERED: LEVA15HF2 INH (14:14)
[2018-07-23] MEDS: LEVALBUTEROL 1.25 MG/3 ML NEB NEB SCH (14:55)
[2018-07-23 20:00] VITALS: BP 107/64
[2018-07-23] MEDS ORDERED: LATANOPRO 0.005% OP SOLN 2.5ML OU SCH (21:00)
[2018-07-23] MEDS: CYCLOBENZAPRINE HCL 10 MG TAB PO PRN (21:14)
[2018-07-24] MEDS: methylPREDNIS SUCC 125 MG/2ML IVP SCH (04:24)
[2018-07-24 04:42] VITALS: BP 109/57
[2018-07-24] MEDS: LEVALBUTEROL 1.25 MG/3 ML NEB NEB SCH (05:47)
[2018-07-24] MEDS: CYCLOBENZAPRINE HCL 10 MG TAB PO PRN (06:06)
[2018-07-24] MEDS: oxyCODON/ACET (*)5/325MG (CII) 1 TAB TAB PO PRN (06:06)
[2018-07-24 08:09] VITALS: BP 113/76
[2018-07-24] MEDS: MONTELUKAST SODIUM 10 MG TAB PO SCH (08:15)
[2018-07-24] MEDS: FLUoxetine HCL 20 MG CAP PO SCH (08:15)
[2018-07-24] MEDS: ENOXAPARIN 40 MG/0.4ML SYR SC SCH (08:15)
[2018-07-24] MEDS: ATORVASTATIN 40 MG TAB PO SCH (08:15)
[2018-07-24] MEDS: PANTOPRAZOLE SOD 40 MG TABEC PO SCH (08:15)
[2018-07-24] MEDS: METOPROLOL SUCC XL 50 MG TABCR 50 MG TAB.ER.24H PO SCH (08:15)
[2018-07-24] MEDS: VENLAFAXINE XR 75 MG CAPCR PO SCH (08:15)
[2018-07-24] MEDS: CHOLESTYRAMINE 4 GM POWD PO SCH (09:19)
[2018-07-24] MEDS ORDERED: PRED-1 PO (09:28)
--- NOTE | 2018-07-24 09:32 | Hospitalist Depart ---
Discharge Summary Reason for Hosp/Final Diag: (1) Asthma exacerbation Status: Acute Hospital Course & Plan: He was admitted for an asthma exacerbation. He was placed on nebulizers and IV corticosteroids. His symptoms have now resolved. He will continue to use his albuterol every 6 hours over the next several days. He will also complete a prednisone taper. (2) RUQ abdominal pain Status: Chronic Hospital Course & Plan: He is under the care of Dr. Gary as an outpatient. Departure Latest Vital Signs Vital Signs 07/24/18 07/24/18 08:09 08:17 Temp 97.9 Pulse 100 Resp 16 B/P (MAP) 113/76 (88) Pulse Ox 92 O2 Delivery Nasal Cannula O2 Flow Rate 1.5 Weight (Pounds): 250 Weight (Ounces): 0.0 Result Diagram: 07/23/1851107/23/18511 Condition: Improved Discharge: Home, Self Care Discharge Instructions Home Meds Active Scripts Prednisone 10 Mg Tab (PREDNISONE 10 MG TAB) 10 Mg Tablet, 10 MG PO DIRECTED, #30 TAB Take 4 tab daily x 3 days, then 3 tab daily x 3 days, then 2 tab daily x 3 days, then 1 tab daily x 3 days Prov:COLLIN GALAN DO 07/24/18 Cholestyramine (With Sugar) (CHOLESTYRAMINE PACKET) 4 Gm Powd.pack, 4 GM PO TID, #90 PACKET 6 Refills Prov:COLLIN GARY MD 07/19/18 Oxycodone Hcl/Acetaminophen (PERCOCET 5-325 MG TABLET) 1 Each Tablet, 1 EACH PO Q4H for PAIN, #20 TAB 0 Refills Prov:ANTIONE BURKETT MD 07/08/18 Promethazine Hcl (PROMETHAZINE HCL) 25 Mg Tablet, 25 MG PO Q8H for 7 Days, #14 TAB Prov:CELESTINO CARDENAS MD 05/19/18 Pantoprazole Sodium (PANTOPRAZOLE SODIUM) 40 Mg Tablet., 40 MG PO QDAY, #30 TAB.SR Prov:ANGI SOUZA NP 06/22/15 Reported Medications Levalbuterol Tartrate (Levalbuterol Tartrate Hfa) 45 Mcg/Actuation Hfa.aer.ad, 1-2 PUFF INH Q4-6H 07/23/18 Atorvastatin Calcium (LIPITOR) 40 Mg Tablet, 1 TAB PO QDAY, TAB 07/08/18 Latanoprost (TRAVATAN Z) 2.5 Ml Soln, 2.5 ML OD 07/08/18 Metoprolol Succinate (METOPROLOL SUCCINATE) 50 Mg Tab.er.24h, 1 TAB PO QDAY, TAB 05/19/18 Venlafaxine Hcl (EFFEXOR XR) 150 Mg Cap.er.24h, 175 MG PO QDAY 03/25/16 Fluoxetine Hcl (Prozac) 40 Mg Capsule, 40 MG PO QDAY, #20 0 Refills 02/16/11 Discontinued Reported Medications Albuterol Sulfate (Albuterol Sulfate Hfa) 8.5 Gm Hfa.aer.ad, 8.5 GM IH Q4H PRN, 0 Refills 02/16/11 Discontinued Scripts Ondansetron Hcl (ZOFRAN) 4 Mg Tablet, 4 MG PO Q8H for Nausea, #15 TAB 0 Refills Prov:ANTIONE BURKETT MD 07/08/18 Ondansetron 4 Mg Odt (ONDANSETRON 4 MG ODT) 4 Mg Tab.rapdis, 4 MG PO Q6H, #10 TAB One tablet every 6 hours as needed for nausea and vomiting. Prov:ANGI SOUZA NP 06/22/15 Diet: Regular Activity: As Tolerated Copies to: MEGAN HOWELL ; Venous Thromboembolism Antithrombotics Is Pt On Any Antithrombotics?: Yes Problem Qualifiers (1) Asthma exacerbation: Asthma severity: moderate Asthma persistence: persistent Qualified Codes: J45.41 - Moderate persistent asthma with (acute) exacerbation COLLIN GALAN DO July 24, 2018 09:32
== END 2018-07-24 09:28 | disposition home or self-care (01) ==
LOC: ER 20:05 → INTOOBSV 07-23 → MED 07-23
PROVIDERS: ADMIT Internal Medicine; ATTEND Internal Medicine
DX: J45.41 Moderate persistent asthma with (acute) exacerbation (principal); R06.00 Dyspnea, unspecified; R11.2 Nausea with vomiting, unspecified; R10.11 Right upper quadrant pain
CPT/HCPCS: 36415; 70491; 71045; 71275; 74177; 80305; 81001; 82150; 83605; 83690; 84484; 85025; 87040; 87088; 87502; 93005; 94640; 94667; 96361; 96365; 96372; 96375; 96376; 99284; G0378; J0131; J1170; J1650; J2405; J2550; J2930; J7030; J7050; Q9967; 82040; 82247; 82310; 82374; 82435; 82565; 82947; 84075; 84132; 84155; 84295; 84450; 84460; 84520

== ENCOUNTER → 2018-07-22 | Outpatient (CLI) | payer BC ==
[~2018-07-22] MED LIST changes: +ATOR40TA24 PO; +CHOL4PAC15 PO; +LATODPT OD; +LEVA15HF2 INH; +ONDA4TAB97 PO; +OXYC-865 PO; +PRED-1 PO
== END ==
LOC: AMB 19:34
PROVIDERS: ATTEND Nurse Practitioner
DX: T78.40XA Allergy, unspecified, initial encounter (principal); R06.02 Shortness of breath; R06.2 Wheezing
CPT/HCPCS: A0425; A0427

== ENCOUNTER → 2018-07-26 | Outpatient (CLI) | payer BC ==
[~2018-07-26] MED LIST changes: +LEVA15HF2 INH; +PRED-1 PO; +SINCALIDE 5 MCG VIAL INJ ONE; +WATER FOR INJ,STERILE 20 ML 0 ML ONE
--- NOTE | 2018-07-26 14:20 | RADIOLOGY IMAGING REPORT ---
FACILITY: [facility] PATIENT NAME: Nolan Walton : 1980 MR: [id number] V: [id number] EXAM DATE: ORDERING PHYSICIAN: COLLIN GARY TECHNOLOGIST: Location: [facility] [place] Patient: Nolan Walton : 1980 Visit/Account:[id number] Date of Sevice: 07/26/2018 Examination: Nuclear Medicine HIDA Scan COMPARISON: CT abdomen and pelvis dated 07/22/2018. HISTORY: postprandial n/v/d abd pain TECHNIQUE: 6.7 mCi Tc99m Mebrofenin was injected intravenously. Multiple sequential gamma camera robert ges of the abdomen were obtained for 91 minutes. FINDINGS: Liver uptake and excretion: Normal. Time to appearance: Bile ducts: 10 minutes. Gallbladder: Absent. Duodenum: 11 minutes. Duodenal- gastric reflux / extravasation: Questionable mild reflux. IMPRESSION: 1. The gallbladder is absent. 2. Questionable mild duodenal-gastric reflux. 3. Otherwise normal HIDA scan. Report Dictated By: Matt Ward MD at 07/26/2018 2:10 PM Report E-Signed By: Matt Ward MD at 07/26/2018 2:17 PM WSN:[email or web address]
== END ==
LOC: NUC 01:09
PROVIDERS: ATTEND Surgery
DX: K21.9 Gastro-esophageal reflux disease without esophagitis (principal); Z90.49 Acquired absence of other specified parts of digestive tract
CPT/HCPCS: 78226; A9537; J2805

== ENCOUNTER → 2018-07-27 | Outpatient (CLI) | payer BC ==
[~2018-07-27] MED LIST changes: +BARIUM SULFATE 176 GM BTL PO ONE; +BARIUM SULFATE 340 GM POWD ONE; -SINCALIDE 5 MCG VIAL INJ ONE; -WATER FOR INJ,STERILE 20 ML 0 ML ONE
--- NOTE | 2018-07-27 13:40 | RADIOLOGY IMAGING REPORT ---
[place] [facility] [place]IENT NAME: Nolan Walton : 1980 MR: [id number] V: [id number] EXAM DATE: ORDERING PHYSICIAN: COLLIN GARY TECHNOLOGIST: Location: [facility] Patient: Nolan Walton : 1980 Visit/Account:[id number] Date of Sevice: 07/27/2018 XR UPPER GI & SM BOWEL HISTORY: postprandial n/v/d abd pain COMPARISON: CT dated July 22, 2018. TECHNIQUE: Fizzies followed by multiple consistencies of barium were administered orally with multipl e spot films obtained. 13 mm barium tablet was swallowed without difficulty. FINDINGS: Esophagus: The esophagus is normal in caliber and contour with no persistent intrinsic or extrinsic f illing defects. There are no persistent areas of narrowing. Hiatal hernia: There is no significant hiatal hernia. Reflux: There are no significant episodes of gastroesophageal reflux. Stomach: The stomach distends normally with contrast with no contour abnormalities. There is no evide nce of gastric outlet obstruction. Duodenum: The duodenal bulb distends normally with contrast with a normal mucosal pattern. Other findings: None significant Small bowel series: Unremarkable. No visualized wall thickening or evidence for obstruction. Dose area product: 2474.24 uGym2 IMPRESSION: Negative upper GI and small bowel follow-through. No findings to explain the patient's clinical symp toms. Report Dictated By: Josue Michael MD at 07/27/2018 1:28 PM Report E-Signed By: Josue Michael MD at 07/27/2018 1:33 PM WSN:[id number]
== END ==
LOC: RAD 00:19
PROVIDERS: ATTEND Surgery
DX: R10.9 Unspecified abdominal pain (principal); R11.2 Nausea with vomiting, unspecified
CPT/HCPCS: 74245

== ENCOUNTER 2018-08-27 01:21 | Emergency (ER) | payer BC ==
[~2018-08-27 01:21] MED LIST changes: -BARIUM SULFATE 176 GM BTL PO ONE; -BARIUM SULFATE 340 GM POWD ONE; +DICY20TA70 PO; +MONT10TA PO
[2018-08-27] MEDS ORDERED: LATODPT OD (01:30)
--- NOTE | 2018-08-27 01:33 | ER Report ---
History and Physical Time Seen By MD: 01:33 Hx. of Stated Complaint: ASTHMA ATTACK STARTING AT MIDNIGHT, NAUSEOUS HPI/ROS CHIEF COMPLAINT: Abdominal pain, nausea, vomiting HISTORY OF PRESENT ILLNESS: Patient is a 38-year-old male here with complaints of abdominal pain, nausea, vomiting. Patient reportedly has had his appendix and gallbladder out in the past. Patient started with nausea over the past 24 hours with subsequent development of right upper quadrant abdominal pain. Patient reportedly takes cholestyramine, dicyclomine for symptom management. Patient is followed by Dr. Phan. Patient also complains of laryngocele causing difficulty breathing with his persistent retching and vomiting. Patient was tachycardic at time of evaluation, otherwise hemodynamically stable, afebrile. REVIEW OF SYSTEMS: Constitutional: No fever, no chills. Eyes: No discharge. ENT: No sore throat. Cardiovascular: No chest pain, no palpitations. Respiratory: No cough, no shortness of breath. Gastrointestinal: + RUQ abdominal pain, + nausea and vomiting. Genitourinary: No hematuria. Musculoskeletal: No back pain. Skin: No rashes. Neurological: No headache. Allergies: Coded Allergies: Sulfa (Sulfonamide Antibiotics) (Verified Allergy, Unknown, 08/18/18) adhesive (Verified Adverse Reaction, Intermediate, ITCHING, 07/22/18) Uncoded Allergies: HAYFEVER (Allergy, Mild, SINUS PROBLEMS, 08/27/11) Home Meds Active Scripts Dicyclomine Hcl (DICYCLOMINE HCL) 20 Mg Tablet, 1 TAB PO QID, #60 TAB 3 Refills Prov:COLLIN GARY MD 08/03/18 Oxycodone Hcl/Acetaminophen (PERCOCET 5-325 MG TABLET) 1 Each Tablet, 1 TAB PO Q8H PRN for PAIN, #20 TAB 0 Refills Prov:COLLIN GARY MD 08/03/18 Cholestyramine (With Sugar) (CHOLESTYRAMINE PACKET) 4 Gm Powd.pack, 4 GM PO TID, #90 PACKET 6 Refills Prov:COLLIN GARY MD 07/19/18 Promethazine Hcl (PROMETHAZINE HCL) 25 Mg Tablet, 25 MG PO Q8H for 7 Days, #14 TAB Prov:CELESTINO CARDENAS MD 05/19/18 Pantoprazole Sodium (PANTOPRAZOLE SODIUM) 40 Mg Tablet.dr, 40 MG PO QDAY, #30 TAB.SR Prov:ANGI SOUZA CIGARETTE TIPPER 06/22/15 Reported Medications Latanoprost (TRAVATAN Z) 2.5 Ml Soln, 2.5 ML OD DAILY 08/27/18 Montelukast Sodium (SINGULAIR) 10 Mg Tablet, 1 TAB PO QDAY, TAB 08/18/18 Levalbuterol Tartrate (Levalbuterol Tartrate Hfa) 45 Mcg/Actuation Hfa.aer.ad, 1-2 PUFF INH Q4-6H 07/23/18 Atorvastatin Calcium (LIPITOR) 40 Mg Tablet, 1 TAB PO QDAY, TAB 07/08/18 Latanoprost (TRAVATAN Z) 2.5 Ml Soln, 2.5 ML OD 07/08/18 Metoprolol Succinate (METOPROLOL SUCCINATE) 50 Mg Tab.er.24h, 1 TAB PO QDAY, TAB 05/19/18 Venlafaxine Hcl (EFFEXOR XR) 150 Mg Cap.er.24h, 175 MG PO QDAY 03/25/16 Fluoxetine Hcl (Prozac) 40 Mg Capsule, 40 MG PO QDAY, #20 0 Refills 02/16/11 Hx Smoking: No Smoking Status: Never Smoker Hx Substance Use Disorder: No Hx Alcohol Use: No Constitutional Vital Sign - Last 24 Hours 08/27/18 08/27/18 08/27/18 08/27/18 01:24 01:25 01:30 02:00 Temp 98.0 Pulse 140 Resp 22 B/P (MAP) 136/122 (127) 136/122 118/88 (98) 125/84 (98) Pulse Ox 97 08/27/18 08/27/18 08/27/18 08/27/18 02:21 02:30 03:00 03:37 Pulse 94 84 B/P (MAP) 131/89 (103) 119/88 (98) 132/90 (104) Pulse Ox 94 97 08/27/18 08/27/18 04:00 04:30 Pulse 91 92 B/P (MAP) 140/86 (104) 122/82 (95) Pulse Ox 93 Intake and Output 08/26/18 08/26/18 08/27/18 15:00 23:00 07:00 Intake Total 1000 ml Output Total 1 ml Balance 999 ml Physical Exam General Appearance: The patient is alert, has no immediate need for airway protection and no signs of toxicity. Uncomfortable appearing Eyes: Pupils equal and round no pallor or injection. ENT, Mouth: Mucous membranes are moist. Respiratory: There are no retractions, lungs are clear to auscultation. Cardiovascular: Normal sinus rhythm Gastrointestinal: Abdomen is soft and tender on palpation of the right upper quadrant, no distention, rebound or guarding Neurological: No focal neurological deficits Skin: Warm and dry, no rashes. Musculoskeletal: Neck is supple non tender. Extremities are nontender, nonswollen and have full range of motion. DIFFERENTIAL DIAGNOSIS: After history and physical exam differential diagnosis was considered for abdominal pain including but not limited to appendicitis, cholecystitis, gastritis and urinary tract infection. Medical Decision Making Data Points Result Diagram: 08/27/18 0131 08/27/18 0131 Laboratory Hematology Test 08/27/18 01:31 08/27/18 04:57 Red Blood Count 6.06 M/uL (4.00-5.60) Mean Corpuscular Volume 87.5 fL (80.0-96.0) Mean Corpuscular Hemoglobin 29.5 pg (26.0-33.0) Mean Corpuscular Hemoglobin Concent 33.7 g/dL (32.0-36.0) Red Cell Distribution Width 13.7 % (11.5-14.5) Mean Platelet Volume 8.7 fL (7.2-11.1) Neutrophils (%) (Auto) 51.8 % (39.4-72.5) Lymphocytes (%) (Auto) 37.0 % (17.6-49.6) Monocytes (%) (Auto) 8.3 % (4.1-12.4) Eosinophils (%) (Auto) 2.0 % (0.4-6.7) Basophils (%) (Auto) 0.9 % (0.3-1.4) Nucleated RBC Relative Count (auto) 0.1 /100WBC Neutrophils # (Auto) 7.1 K/uL (2.0-7.4) Lymphocytes # (Auto) 5.1 K/uL (1.3-3.6) Monocytes # (Auto) 1.1 K/uL (0.3-1.0) Eosinophils # (Auto) 0.3 K/uL (0.0-0.5) Basophils # (Auto) 0.1 K/uL (0.0-0.1) Nucleated RBC Absolute Count (auto) 0.01 K/uL Sodium Level 143 mmol/L (137-145) Potassium Level 3.7 mmol/L (3.5-5.0) Chloride Level 104 mmol/L (98-107) Carbon Dioxide Level 16 mmol/L (22-30) Blood Urea Nitrogen 10 mg/dl (9-21) Creatinine 1.20 mg/dl (0.66-1.25) Glomerular Filtration Rate Calc > 60.0 Random Glucose 130 mg/dl (75-110) Calcium Level 10.0 mg/dl (8.4-10.2) Total Bilirubin 1.1 mg/dl (0.2-1.3) Aspartate Amino Transf (AST/SGOT) 33 U/L (0-35) Alanine Aminotransferase (ALT/SGPT) 60 U/L (0-56) Alkaline Phosphatase 114 U/L (0-126) Total Protein 8.1 g/dl (6.3-8.2) Albumin 4.8 g/dl (3.5-5.0) Lipase 322 U/L (23-300) Lactate 1.7 mmol/L (0.7-2.1) Chemistry Test 08/27/18 01:31 08/27/18 04:57 White Blood Count 13.8 k/uL (4.5-11.0) Red Blood Count 6.06 M/uL (4.00-5.60) Hemoglobin 17.9 g/dL (14.0-18.0) Hematocrit 53.0 % (42.0-52.0) Mean Corpuscular Volume 87.5 fL (80.0-96.0) Mean Corpuscular Hemoglobin 29.5 pg (26.0-33.0) Mean Corpuscular Hemoglobin Concent 33.7 g/dL (32.0-36.0) Red Cell Distribution Width 13.7 % (11.5-14.5) Platelet Count 318 K/uL (150-450) Mean Platelet Volume 8.7 fL (7.2-11.1) Neutrophils (%) (Auto) 51.8 % (39.4-72.5) Lymphocytes (%) (Auto) 37.0 % (17.6-49.6) Monocytes (%) (Auto) 8.3 % (4.1-12.4) Eosinophils (%) (Auto) 2.0 % (0.4-6.7) Basophils (%) (Auto) 0.9 % (0.3-1.4) Nucleated RBC Relative Count (auto) 0.1 /100WBC Neutrophils # (Auto) 7.1 K/uL (2.0-7.4) Lymphocytes # (Auto) 5.1 K/uL (1.3-3.6) Monocytes # (Auto) 1.1 K/uL (0.3-1.0) Eosinophils # (Auto) 0.3 K/uL (0.0-0.5) Basophils # (Auto) 0.1 K/uL (0.0-0.1) Nucleated RBC Absolute Count (auto) 0.01 K/uL Glomerular Filtration Rate Calc > 60.0 Calcium Level 10.0 mg/dl (8.4-10.2) Total Bilirubin 1.1 mg/dl (0.2-1.3) Aspartate Amino Transf (AST/SGOT) 33 U/L (0-35) Alanine Aminotransferase (ALT/SGPT) 60 U/L (0-56) Alkaline Phosphatase 114 U/L (0-126) Total Protein 8.1 g/dl (6.3-8.2) Albumin 4.8 g/dl (3.5-5.0) Lipase 322 U/L (23-300) Lactate 1.7 mmol/L (0.7-2.1) EKG/Imaging Imaging PATIENT NAME: Nolan Walton : 1980 MR: [id number] V: [id number] EXAM DATE: ORDERING PHYSICIAN: NEHA LUO TECHNOLOGIST: Location: [facility] Patient: Nolan Walton : 1980 Visit/Account:[id number] Date of Sevice: 08/27/2018 CT ABDOMEN PELVIS W/ CON HISTORY: Abdominal pain TECHNIQUE: Axial images were obtained through the abdomen and pelvis with intravenous contrast . One of the following dose optimization techniques was utilized in the performance of this exam: automated exposure control; adjustment of the mA and/or kv according to patient size; or use of iterative reconstruction technique. Specific details can be referenced in the facility's radiology CT exam operational policy. CONTRAST: 75 cc of Isovue-370 COMPARISON: CT abdomen/pelvis 07/22/2018 FINDINGS: Visualized lung bases: Negative. Hepatobiliary: Cholecystectomy. No biliary ductal dilatation. Reidentified is a 2.2 x 1.6 cm enhancing lesion within the tip of the right lobe the liver (coronal image 43) which was also subtly present on prior examination dating back to at least 2015. Spleen: Negative. Adrenals: Negative. Pancreas: Negative. Kidneys/ureters/bladder: Negative. Bowel/peritoneum/mesentery: Moderate amount of sigmoid stool. Mild colonic wall thickening. No bowel obstruction, free air or ascites. Appendix not visualized Vessels: Negative. Lymph nodes: Stable 1 cm gastrohepatic lymph node. Pelvic genitourinary: Negative. Bones/body wall: Negative. Other findings: None significant IMPRESSION: 1. Moderate amount of sigmoid stool with mild colonic wall thickening. Recommend clinical correlation for infectious/inflammatory colitis. 2. Subtle 2.2 x 1.6 cm enhancing lesion within the tip of the right lobe of the liver which has been present on CT dating back to at least 2015 and is likely benign. 3. Stable mildly enlarged gastrohepatic lymph node. Report Dictated By: Isaías Venegas MD at 08/27/2018 3:59 AM ED Course/Re-evaluation ED Course Patient is a 38-year-old male here with complaints of right upper quadrant abdominal pain, nausea, vomiting. Patient's initial lactate was greater than 8, repeat lactate was 1.7 after 2 L normal saline bolus. Labs were remarkable for a mild leukocytosis but otherwise unremarkable. Patient was given Zofran, Reglan, Phenergan, fentanyl with significant relief of symptoms. CT was consistent with mild inflammatory changes of the bowel wall with no identifiable obstruction. Patient had marked improvement of symptoms. CT imaging showed mild bowel wall thickening inflammatory versus infectious. Patient will be treated with Cipro and Flagyl in the interim. Recommend close follow-up with Dr. Phan for further evaluation. Scripts provided for Cipro, Flagyl, Phenergan suppositories, tramadol. Patient was hemodynamically stable at time of discharge. Return precautions provided. Decision to Disposition Date: Aug 27, 2018 Decision to Disposition Time: 05:30 Depart Departure Latest Vital Signs Vital Signs Date Time Temp Pulse Resp B/P (MAP) Pulse Ox O2 Delivery O2 Flow Rate FiO2 08/27/18 04:30 92 122/82 (95) 93 08/27/18 01:25 98.0 22 Impression: Primary Impression: RUQ abdominal pain Condition: Improved Disposition: HOME OR SELF-CARE Referrals: MEGAN HOWELL (PCP) New Scripts Tramadol Hcl (TRAMADOL HCL) 50 Mg Tablet 50 MG PO Q6H PRN for PAIN, #20 TAB 0 Refills Prov: NEHA LUO DO 08/27/18 Promethazine HCl (Phenergan) 25 Mg Supp.rect 1 SUPP.RECT ND Q8H PRN for NAUSEA/VOMITING, #20 SUPP.RECT Prov: NEHA LUO DO 08/27/18 Metronidazole (FLAGYL) 500 Mg Tablet 500 MG PO TID for 7 Days, #21 TAB Prov: NEHA LUO DO 08/27/18 Ciprofloxacin Hcl 500 Mg Tab (CIPRO 500 MG TAB) 500 Mg Tablet 500 MG PO BID for 7 Days, #14 TAB Prov: NEHA LUO DO 08/27/18 Patient Instructions: Abdominal Pain (ED) Additional Instructions: Please drink plenty of water. You may take 1 Phenergan suppository every 8 hours as needed for nausea and vomiting control. Please follow-up with Dr. Phan for repeat evaluation. Please take ciprofloxacin acid 1 tablet twice daily for 7 days, Flagyl 1 tablet 3 times daily for 7 days. You may take tramadol 1 tablet every 8 hours as needed for breakthrough pain control. Please return promptly if you develop intractable nausea, vomiting, fevers, worsening abdominal pain, shortness breath. NEHA LUO DO Aug 27, 2018 01:33
[2018-08-27] MEDS ORDERED: NS(*) 0.9% 1000 ML BAG 1,000 ML IV ONE ×2 (01:38→04:05)
[2018-08-27] MEDS ORDERED: METOCLOPRAMIDE 10 MG/2 ML SDV IVP ONE (01:40)
[2018-08-27] MEDS ORDERED: DIAZEPAM 50 MG/10 ML MDV IVP ONE (01:40)
[2018-08-27] MEDS ORDERED: fentaNYL CITR 100 MCG/2 ML AMP IVP ONE (01:40)
[2018-08-27] MEDS ORDERED: LIDOCAINE MPF 4% 200MG/5ML AMP INH ONE (01:45)
[2018-08-27 01:58] LABS: PLATELET COUNT, AUTOMATED 318 K/uL (150-450)
[2018-08-27] MEDS ORDERED: IOPAMIDOL 76% 150 ML INFUS BTL 150 ML ONE (02:21)
[2018-08-27] MEDS ORDERED: PROMETHAZINE 25 MG/ML 1 ML AMP IVP ONE (03:05)
--- NOTE | 2018-08-27 04:15 | RADIOLOGY IMAGING REPORT ---
FACILITY: [facility] PATIENT NAME: Nolan Walton : 1980 MR: [id number] V: [id number] EXAM DATE: ORDERING PHYSICIAN: NEHA LUO TECHNOLOGIST: Location: [facility] [place] Patient: Nolan Walton : 1980 Visit/Account:[id number] Date of Sevice: 08/27/2018 CT ABDOMEN PELVIS W/ CON HISTORY: Abdominal pain TECHNIQUE: Axial images were obtained through the abdomen and pelvis with intravenous contrast . One of the following dose optimization techniques was utilized in the performance of this exam: automate d exposure control; adjustment of the mA and/or kv according to patient size; or use of iterative rec onstruction technique. Specific details can be referenced in the facility's radiology CT exam operati onal policy. CONTRAST: 75 cc of Isovue-370 COMPARISON: CT abdomen/pelvis 07/22/2018 FINDINGS: Visualized lung bases: Negative. Hepatobiliary: Cholecystectomy. No biliary ductal dilatation. Reidentified is a 2.2 x 1.6 cm enhanci ng lesion within the tip of the right lobe the liver (coronal image 43) which was also subtly present on prior examination dating back to at least 2015. Spleen: Negative. Adrenals: Negative. Pancreas: Negative. Kidneys/ureters/bladder: Negative. Bowel/peritoneum/mesentery: Moderate amount of sigmoid stool. Mild colonic wall thickening. No bowel obstruction, free air or ascites. Appendix not visualized Vessels: Negative. Lymph nodes: Stable 1 cm gastrohepatic lymph node. Pelvic genitourinary: Negative. Bones/body wall: Negative. Other findings: None significant IMPRESSION: 1. Moderate amount of sigmoid stool with mild colonic wall thickening. Recommend clinical correlation for infectious/inflammatory colitis. 2. Subtle 2.2 x 1.6 cm enhancing lesion within the tip of the right lobe of the liver which has been present on CT dating back to at least 2016 and is likely benign. 3. Stable mildly enlarged gastrohepatic lymph node. Report Dictated By: Isaías Venegas MD at 08/27/2018 3:59 AM Report E-Signed By: Isaías Venegas MD at 08/27/2018 4:11 AM WSN:[id number]
[2018-08-27] MEDS ORDERED: ONDANSETRON 4 MG/2 ML VIAL IVP ONE (04:20)
[2018-08-27 05:30] VITALS: BP 129/88
[2018-08-27] MEDS ORDERED: METR-1 PO (05:33)
[2018-08-27] MEDS ORDERED: CIPR-344 PO (05:33)
[2018-08-27] MEDS ORDERED: TRAM-420 PO (05:33)
[2018-08-27] MEDS ORDERED: PROM25SU8 PR (05:33)
[2018-08-27] MEDS ORDERED: ONDANSETRON 4 MG ODT TABDP SL ONE (05:50)
== END 2018-08-27 05:45 | disposition home or self-care (01) ==
LOC: ER 01:42
DX: R10.11 Right upper quadrant pain (principal); D72.829 Elevated white blood cell count, unspecified; R00.0 Tachycardia, unspecified
CPT/HCPCS: 74177; 83605; 83690; 85025; 94640; 96361; 96374; 96375; 99284; J2001; J2405; J2550; J2765; J3010; J3360; J7030; Q9967; S0119; 82040; 82247; 82310; 82374; 82435; 82565; 82947; 84075; 84132; 84155; 84295; 84450; 84460; 84520